=== PATIENT | female | born 1960 | race Caucasian/White ===

== ENCOUNTER 2016-11-30 05:18 | Emergency (ER) | payer OTHER ==
[~2016-11-30] VITALS: Ht 157.5 cm; Wt 77.1 kg
[~2016-11-30 05:18] MED LIST: ALPR0.25 PO; FLUO10CA15 PO
[2016-11-30] MEDS ORDERED: SODIUM CHLORIDE 0.9% 1,000 ML IV ONE (06:39)
[2016-11-30 07:29] LABS: Basophils # (auto) 0 uL; Basophils % (auto) 0.3 % (0.0-2.0); Eosinophils # (auto) 0 uL; Hematocrit 44.5 % (36.0-46.0); Lymphocytes # (auto) 1.2 uL; Lymphocytes % (auto) 8.5 % (10.0-50.0); Mean Corpuscular Hemoglobin 31.9 pg (28.0-32.0); Mean Corpuscular Hgb Conc. 33.8 g/dL (32.0-36.0); Mean Corpuscular Volume 94.5 fL (80.0-100.0); Mean Platelet Volume 8.8 fL (6.9-10.8); Monocytes # (auto) 0.7 uL; Monocytes % (auto) 4.8 % (0.0-12.0); Neutrophils # (auto) 12.1 uL; Neutrophils % (auto) 86.4 % (37.0-80.0); Platelet Count (auto) 228 10^3/uL (140-450); Red Cell Distribution Width 13.5 % (11.8-14.3); White Blood Cell 14.1 10^3/uL (4.4-10.8)
[2016-11-30 07:48] LABS: Albumin 3.5 g/dL (3.4-5.0); BUN/Creatinine Ratio 18.9; Calcium 9.7 mg/dL (8.5-10.1); Magnesium 2.1 mg/dL (1.6-2.6); Potassium 3.8 mmol/L (3.5-5.1)
[2016-11-30 07:50] LABS: Bilirubin, Total 0.5 mg/dL (0.2-1.0); Total Protein 7.1 g/dL (6.4-8.2)
[2016-11-30] MEDS ORDERED: VANCOMYCIN 1GM/250ML D5W 250 ML IV ONE (09:00)
[2016-11-30 09:28] LABS: Urine Bilirubin Negative (Negative); Urine Blood 1+ /uL (Negative); Urine Color Yellow (Yellow); Urine Glucose TRACE mg/dL (Normal); Urine Ketone TRACE (Negative); Urine Mucus FEW (None Seen); Urine Nitrite Negative (Negative); Urine RBC 11 /hpf (0 - 4); Urine Squamous Epithelial Cell FEW /hpf (<5)
[2016-11-30] MEDS ORDERED: IBUPROFEN 600 MG TAB PO ONE (09:45)
[2016-11-30 11:45] VITALS: BP 134/70
== END 2016-11-30 11:57 | disposition home or self-care (01) ==
LOC: EDBD 05:18 → ER 05:18
DX: K52.9 Noninfective gastroenteritis and colitis, unspecified (principal); K57.32 Diverticulitis of large intestine without perforation or abscess without bleeding; E78.5 Hyperlipidemia, unspecified; I25.2 Old myocardial infarction; Z88.8 Allergy status to other drugs, medicaments and biological substances; Z90.49 Acquired absence of other specified parts of digestive tract; Z88.1 Allergy status to other antibiotic agents
CPT/HCPCS: 36415; 74176; 80053; 81001; 83690; 83735; 84443; 85025; 94761; 96361; 96365; 99285; J3370

== ENCOUNTER 2024-08-08 09:14 | Inpatient (IN) | payer OTHER ==
[2024-08-08] VITALS (7 sets, daily range): BP systolic 136–215; BP diastolic 68–111; PULSE 110–158; RESP 37–44; O2SAT 90–99
[~2024-08-08] VITALS: Ht 157.5 cm; Wt 69.0 kg
--- NOTE | 2024-08-08 09:28 | ECG ---
[facility] Test Date: 2024-08-08 Test Time: 09:27:30 Pat Name: KIMMIE NOLAND Department: ED Room: Gender: F Systems Analyst Engineer: AGNES : 1960 Requested By: YU SARMIENTO Order Number: [id number] Reading MD: Abhay Cabello Measurements Intervals [place] Rate: 154 P: 58 MO: 150 QRS: 18 QRSD: 81 T: -85 QT: 274 QTc: 439 Interpretive Statements Sinus tachycardia Atrial premature complex Probable left atrial enlargement Low voltage, precordial leads Probable anteroseptal infarct, old Repolarization abnormality, prob rate related Electronically Signed On 08-08-2024 17:33:05 PDT by Abhay Cabello Please click the below link to view image of tracing.
[2024-08-08] MEDS ORDERED: ALBUTEROL SULF 2.5 MG/0.5ML(0.5%) NEB SOLN NEB ONE ×2 (09:30)
[2024-08-08] MEDS: LACTATED RINGER'S 1,500 ML IV ONE (09:30)
--- NOTE | 2024-08-08 09:32 | ED.PDOC ---
SOB-HPI HPI Comments 63 y/o F, BIBA, with PMHx of AFib, DM, VT, and anxiety presents to the ED for CC of shortness of breath. EMS reports, patient is coming from home where she c/o shortness of breath worsening in the last x2days. Upon arrival to scene, patient was found to be hypoxic stating at 70% on 4L via NC; endorses continuos oxygen usage at this flow with normal O2 stats. Patient reports, having a right sided lung transplant which she is concerned may be causing symptoms. Patient denies sick contacts, cough, chest pain, or fever. No other symptoms or modifying factors at this time. 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: No Pertinent TOOL GRINDER OPERATOR EXTERNAL History Family History Family History: Unobtainable Social History Smoker: Non-Smoker Alcohol: Denies ETOH Use Drugs: Denies Drug Use Lives In: Home Constitutional: denies: chills, diaphoresis, fatigue, fever, malaise, sweats, weakness, others EENTM: denies: blurred vision, double vision, ear bleeding, ear discharge, ear drainage, ear pain, ear ringing, eye pain, eye redness, hearing loss, mouth pain, mouth swelling, nasal discharge, nose bleeding, nose congestion, nose pain, photophobia, tearing, throat pain, throat swelling, voice changes, others Respiratory: reports: shortness of breath; denies: cough, hemoptysis, orthopnea, SOB at rest, SOB with excertion, stridor, wheezing, others Cardiovascular: denies: chest pain, dizzy spells, diaphoresis, Dyspnea on exertion, edema, irregular heart beat, left arm pain, lightheadedness, palpitations, PND, syncope, others Gastrointestinal: denies: abdomen distended, abdominal pain, blood streaked bowels, constipated, diarrhea, dysphagia, difficulty swallowing, hematemesis, melena, nausea, poor appetite, poor fluid intake, rectal bleeding, rectal pain, vomiting, others Genitourinary: denies: abnormal vagina bleeding, burning, dyspareunia, dysuria, flank pain, frequency, hematuria, incontinence, pain, , vagina dis charge, urgency, others Neurological: denies: dizziness, fainting, headache, left sided numbness, left sided weakness, numbness, paresthesia, pre-existing deficit, right sided numbness, right sided weakness, seizure, speech problems, tingling, tremors, weakness, others Musculoskeletal: denies: back pain, gout, joint pain, joint swelling, muscle pain, muscle stiffness, neck pain, others Integumetry: denies: bruises, change in color, change in hair/nails, dryness, laceration, lesions, lumps, rash, wounds, others Allergic/Immunocompromised: denies: Difficulty Healing, Frequent Infections, Hives, Itching, others Hematologic/Lymphatic: denies: anemia, blood clots, easy bleeding, easy bruising, swollen glands, others Endocrine: denies: excessive hunger, excessive sweating, excessive thirst, excessive urination, flushing, intolerance to cold, intolerance to heat, unexplained weight gain, unexplained weight loss, others Psychiatric: denies: anxiety, bipolar disorder, depression, hopeless, panic disorder, schizophrenia, sleepless, suicidal, others All Other Systems: Reviewed and Negative Physical Exam General Appearance: No Apparent Distress, Normal HEENT: Normal ENT Inspection, Pharynx Normal Neck: Full Range of Motion, Non-Tender, Normal, Normal Inspection Respiratory: Chest Non-Tender, Crackles, No Accessory Muscle Use, No Respiratory Distress, Wheezing (BILATERAL) Cardiovascular: No Edema, No Murmur, No Gallop, Normal Peripheral Pulses, Regular Rate/Rhythm Breast Exam: Deferred Gastrointestinal: No Organomegaly, Non Tender, No Pulsatile Mass, Normal Bowel Sounds, Soft Genitalia: Deferred Pelvic: Deferred Rectal: Deferred Extremities: No calf tenderness, Normal capillary refill, Normal inspection, Normal range of motion, Non-tender, No pedal edema Musculoskeletal : Apperance: Normal Neurologic: Alert, financial aid II-XII nml as Tested, No Motor Deficits, Normal Affect, Normal Mood, No Sensory Deficits Cerebellar Function: Normal Reflexes: Normal Skin: Dry, Normal Color, Warm Lymphatic: No Adenopathy Was a procedure done? Was a procedure done?: No Differential Dx Differential Diagnosis: Anxiety, Asthma, Bronchitis, CHF, COPD, Myocardial infarction, Panic Attack, Pneumonia, Pneumothorax, Pulmonary Embolism, Respiratory Distress, Sinusitis, Pharyngitis, URI X-Ray, Labs, Meds, VS Vital Signs Date Time Temp Pulse Resp B/P (MAP) Pulse Ox O2 Delivery O2 Flow Rate FiO2 08/08/24 11:18 121 139/57 Facial BiPAP Mask 60 08/08/24 10:31 120 08/08/24 10:12 148 44 215/111 90 65 08/08/24 10:07 60 08/08/24 10:03 131 30 155/73 (100) 95 08/08/24 09:59 134 08/08/24 09:48 215/111 08/08/24 09:38 148 215/111 Facial BiPAP Mask 50 08/08/24 09:36 97.9 158 37 215/111 (145) 90 97.9 08/08/24 09:27 154 08/08/24 09:24 98.2 156 40 200/130 (153) 90 98.2 Lab Test 08/08/24 11:00 08/08/24 10:54 08/08/24 09:51 08/08/24 09:48 Range/Units Urine Color Pending Urine Clarity Pending Urine pH Pending Urine Specific [place] Pending Urine Protein Pending Urine Ketones Pending Urine Blood Pending Urine Nitrite Pending Urine Bilirubin Pending Urine Urobilinogen Pending Urine Leukocyte Esterase Pending Urine RBC Pending Urine Microscopic WBC Pending Urine Squamous Epithelial Cells Pending Urine Bacteria Pending Urine Glucose Pending Troponin I High Sensitivity 75 *H 32 </=34 ng/L Blood Gas Specimen Type Arterial Blood Gas Sample Site Left radial Blood Gas Patient Temperature 37.0 Arterial Blood Date Drawn [id number] Arterial Blood pH 7.418 7.350-7.450 Arterial Blood Partial Pressure CO2 42.6 32.0-45.0 mmHg Arterial Blood Partial Pressure O2 67.8 L 83.0-108.0 mmHg Arterial Blood HCO3 26.9 21.0-28.0 mmol/L Arterial Blood Oxygen Saturation 90.5 L 94.0-98.0 % Arterial Blood Base Excess 2.1 -2.0-3.0 mmol/L Arterial Blood Oxyhemoglobin 89.5 L 94.0-98.0 % Arterial Blood Carboxyhemoglobin 0.6 0.5-1.5 % Arterial Blood Methemoglobin 0.5 0.0-1.5 % Ramos Test Yes Blood Gas Total Hemoglobin 10.00 L 12.0-16.0 g/dL Blood Gas Modality Mask - bipap FiO2 % 50.0 Blood Gas EPAP 5 Blood Gas IPAP 12 White Blood Count 10.8 4.4-10.8 10^3/uL Red Blood Count 3.00 L 4.0-5.20 10^6/uL Hemoglobin 9.4 L 12.2-16.2 g/dL Hematocrit 28.8 L 36.0-46.0 % Mean Corpuscular Volume 96.0 80.0-100.0 fL Mean Corpuscular Hemoglobin 31.3 28.0-32.0 pg Mean Corpuscular Hemoglobin Concent 32.6 32.0-36.0 g/dL Red Cell Distribution Width 17.1 H 11.8-14.3 % Platelet Count 272 140-450 10^3/uL Mean Platelet Volume 8.8 6.9-10.8 fL Neutrophils (%) (Auto) 60.1 37.0-80.0 % Lymphocytes (%) (Auto) 26.9 10.0-50.0 % Monocytes (%) (Auto) 10.8 0.0-12.0 % Eosinophils (%) (Auto) 1.4 0.0-7.0 % Basophils (%) (Auto) 0.8 0.0-2.0 % Neutrophils # (Auto) 6.5 1.6-8.6 10 ^3/uL Lymphocytes # (Auto) 2.9 0.4-5.4 10 ^3/uL Monocytes # (Auto) 1.2 0-1.3 10 ^3/uL Eosinophils # (Auto) 0.2 0-0.8 10 ^3/uL Basophils # (Auto) 0.1 0-0.2 10 ^3/uL Nucleated Red Blood Cells 0.0 % Prothrombin Time 11.7 9.3-11.8 sec Prothrombin Time INR 1.12 0.9-1.15 Activated Partial Thromboplast Time 26.3 24.5-34.5 SEC Sodium Level 143 136-145 mmol/L Potassium Level 3.7 3.5-5.1 mmol/L Chloride Level 103 98-107 mmol/L Carbon Dioxide Level 28 20-31 mmol/L Anion Gap 12 5-15 Blood Urea Nitrogen 18 9-23 mg/dL Creatinine 1.45 H 0.550-1.02 mg/dL Glomerular Filtration Rate Calc 40 >90 mL/min BUN/Creatinine Ratio 12.4 10.0-20.0 Serum Glucose 177 H 74-106 mg/dL Lactic Acid Level 3.9 *H 0.4-2.0 mmol/L Calcium Level 10.2 8.7-10.4 mg/dL B-Type Natriuretic Peptide 3977.34 0-100 pg/mL Current Medications Medications (Trade) Dose Ordered Sig/Tatyana Route Start Time Stop Time Status Last Admin Albuterol (Ventolin Medneb) 20 mg ONCE ONCE NEB 08/08/24 09:30 08/08/24 09:31 DC 08/08/24 10:23 Ipratropium [place] (Atrovent Medneb) 0.5 mg ONCE ONCE NEB 08/08/24 09:30 08/08/24 09:31 DC 08/08/24 10:23 Furosemide (Lasix Injection) 40 mg ONCE ONCE IV 08/08/24 09:30 08/08/24 09:31 DC 08/08/24 09:48 Vancomycin HCl 200 ml @ 200 mls/hr ONCE ONCE IV 08/08/24 09:30 08/08/24 10:29 DC 08/08/24 10:05 Cefepime HCl 50 ml @ 12.5 mls/hr Q8H IV 08/08/24 09:36 08/08/24 10:30 Lorazepam (Ativan Inj) 0.5 mg ONCE ONCE IV 08/08/24 11:00 08/08/24 11:01 DC 08/08/24 10:59 [place] [address] Ph: [phone] DIAGNOSTIC IMAGING Diagnostic Imaging Report : [id number] Signed PATIENT: KIMMIE NOLAND ACCT: [id number] UNIT: [id number] : 1960 LOC: ER ROOM / BED: / AGE / SEX: 63 / F ADM STATUS: REG ER SERVICE 2 ORDERING PHYSICIAN: YU SARMIENTO MD PROCEDURE(s): CXRP - CHEST PORTABLE REASON: sob ORDER NUMBER(s): [id number], ACCESSION NUMBER(s): [id number] CHEST XRAY: 1 view(s) was obtained HISTORY: 63 years old, Female; sob. COMPARISON: None FINDINGS: Extensive bilateral lung opacification with areas of confluence and ground glass. Cardiomediastinal solid is enlarged. Calcification of the yamilka arch. Overlying wires. IMPRESSION: 1. Extensive bilateral along the opacification which can be seen with diffuse alveolar damage. Superimposed pulmonary edema and pneumonia may be the underlying cause. 2. Cardiomegaly ATED BY: WALLY WALKER MD DICTATED DATE/TIME: 08/08/241041 SIGNED BY: WALLY WALKER MD SIGNED DATE/TIME: 08/08/241041 CC: Time of 1ST Reevaluation: 09:50 Reevaluation 1ST: Unchanged Time of 2ND Reevaluation: 10:58 Reevaluation 2ND: Improved Time of 3RD Reevaluation: 11:22 Reevaluation 3RD: Improved (pt had large amount of urinary incontinence before acharya insertion) Consultation: Other ([facility] lung transplant- pending response from them, [facility]. Dr Keys gave authorization to admit here #[id number]) Patient Education/Counseling: Diagnosis, Treatment, Prognosis, Need For Follow Up Family Education/Counseling: Diagnosis, Treatment, Prognosis, Need For Follow Up, No Family Present Comments 30cc/kg IBW IVF was not given._0__cc was given instead, due to the following condition(s): __comfort or palliative care directive x_pre-existing fluid overload __refusal of fluid __refusal of IV access __IV antibiotics received more than 24 hours prior to presentation __pt included in a clinical trial __Pt is fluid unresponsive due tot low C.O> or low EF __LVAD patient pt is much improved. she is calm and comfortably resting on Bipap. she is speaking in full sentences. cxr suggest ARDS vs pulm edema. i started to diurese with lasix. a fole will be inserted to watch strict I/Os. sepsis bundel also started for pneumonia. pt reports that she was recently admitted to [place] for pneumonia, but does not know if she was on antibiotics prior to coming to our ER. pt understands that she may still need to be intubated if worsens, but feels improved and wished to avoid it for now. pt will be admitted for pneumonia, with severe sepsis, with respiratory failure, on BiPAP. she also is in acute systolic heart failure and mild renal failure. in addition, pt has hypertensive emergency which may have contributed to the pulmonary edema. this will be treated with labetolol and nitro, lasix pt continues to improve. [place] [facility] was called and granted permission to admit pt here Additional Information Previous visits reviewed: 11/30/16 DX: ACUTE ABD PAIN, 01/03/16 DX: SVT, POSS STEMI The following tests were ordered, and results were reviewed by me: Additional Information was gathered from interviewing the following independent historians: None I reviewed and agreed with the following test results read by other providers: None I discussed treatment and results with medical personnel and: patient Comprehensive systems review obtained and negative except for what is stated in the HPI. Sepsis Sepsis Reasesment Focused Exam Orders: Laboratory Tests 08/08/24 09:48: Lactic Acid Level 3.9 Sepsis Date: Aug 08, 2024 Time recognized/suspected: 09:25 Recent Procedure: No On Antibiotic Therapy: No Respiratory Rate >20: Yes Heart Rate >90: Yes Temp<36 C (96.8 F) or >38.3 C: No SBP <90 or MAP <65 mmHG: No New Acute Mental Status Change: No Is the patient on CPAP, BIPAP,: Yes IV fluid given: No Departure 1 Departure Time of Disposition: 11:02 Impression: Primary Impression: Severe sepsis Additional Impressions: Acute respiratory failure Qualified Codes: J96.01 - Acute respiratory failure with hypoxia Renal insufficiency CHF (congestive heart failure) Qualified Codes: I50.21 - Acute systolic (congestive) heart failure Hypertensive emergency Disposition: ADMITTED INPATIENT Admit to: ICU Condition: Critical Discharged With: Self, Spouse Critical Care Note Critical Care Time?: Yes (55 min-critical care time only) Critical care comment: Due to concerns for patients condition deteriorating, the care required my highest level of attention and readiness to intervene. I assessed the patient, reviewed the medical records, ordered the appropriate tests and treatments, then reassessed for results and responsiveness. I communicated with medical personnel and consultants and formulated a plan of care. Total critical care time excludes any procedures Stability Stability form required: No Heart Score Heart Score: Heart Score Response (Comments) Value History N/A 0 EKG N/A 0 Age N/A 0 Risk Factors N/A 0 Troponin N/A 0 Total 0 I personally scribed for YU SARMIENTO MD ([email or web address]) on 08/08/24 at 09:31. Electronically submitted by Khadra Soto (Spor). I personally scribed for YU SARMIENTO MD ([email or web address]) on 08/08/24 at 11:24. Electronically submitted by Khadra Soto (Spor). I personally scribed for YU SARMIENTO MD ([email or web address]) on 08/08/24 at 11:25. Electronically submitted by Khadra Soto (Spor). YU SARMIENTO MD Aug 08, 2024 09:31
[2024-08-08] MEDS: FUROSEMIDE 40 MG/4 ML VIAL IV ONE ×2 (09:48→11:49)
[2024-08-08 09:56] LABS: Base Excess 2.1 mmol/L (-2.0-3.0)
[2024-08-08] MEDS: VANCOMYCIN 1GM/200ML PM 200 ML IV ONE (10:05)
[2024-08-08 10:08] LABS: Basophils # (auto) 0.1 10 ^3/uL (0-0.2); Basophils % (auto) 0.8 % (0.0-2.0); Eosinophils # (auto) 0.2 10 ^3/uL (0-0.8); Eosinophils % (auto) 1.4 % (0.0-7.0); Hematocrit 28.8 % (36.0-46.0); Hemoglobin 9.4 g/dL (12.2-16.2); Lymphocytes # (auto) 2.9 10 ^3/uL (0.4-5.4); Lymphocytes % (auto) 26.9 % (10.0-50.0); Mean Corpuscular Hemoglobin 31.3 pg (28.0-32.0); Mean Corpuscular Hgb Conc. 32.6 g/dL (32.0-36.0); Monocytes # (auto) 1.2 10 ^3/uL (0-1.3); Monocytes % (auto) 10.8 % (0.0-12.0); Neutrophils # (auto) 6.5 10 ^3/uL (1.6-8.6); Neutrophils % (auto) 60.1 % (37.0-80.0); Platelet Count (auto) 272 10^3/uL (140-450); Red Cell Distribution Width 17.1 % (11.8-14.3); White Blood Cell 10.8 10^3/uL (4.4-10.8)
[2024-08-08 10:10] LABS: Chloride 103 mmol/L (98-107); Potassium 3.7 mmol/L (3.5-5.1); Sodium 143 mmol/L (136-145)
[2024-08-08 10:11] LABS: Anion Gap 12 (5-15); Calcium 10.2 mg/dL (8.7-10.4); Carbon Dioxide 28 mmol/L (20-31)
[2024-08-08 10:16] LABS: BUN/Creatinine Ratio 12.4 (10.0-20.0); Blood Urea Nitrogen 18 mg/dL (9-23)
[2024-08-08 10:20] LABS: Glucose 177 mg/dL (74-106)
[2024-08-08 10:23] LABS: Lactic Acid w/Reflex 3.9 mmol/L (0.4-2.0)
[2024-08-08] MEDS: IPRATROPIUM BROM 0.5 MG/2.5ML INH SOL NEB ONE (10:23)
[2024-08-08] MEDS: ALBUTEROL SULF 2.5 MG/0.5ML(0.5%) NEB SOLN NEB ONE (10:23)
[2024-08-08] MEDS: CEFEPIME 1GM/ 50ML 50 ML IV SCH (10:30)
--- NOTE | 2024-08-08 10:32 | ECG ---
[facility] Test Date: 2024-08-08 Test Time: 10:31:15 Pat Name: KIMMIE NOLAND Department: ED Room: Gender: F Mica Spreader: AGNES : 1960 Requested By: YU SARMIENTO Order Number: [id number] Reading MD: Abhay Cabello Measurements Intervals [place] [facility] Rate: 120 P: 42 FL: 155 QRS: 0 QRSD: 65 T: 0 QT: 336 QTc: 475 Interpretive Statements Sinus tachycardia Atrial premature complex Probable left atrial enlargement LVH with secondary repolarization abnormality Electronically Signed On 08-08-2024 17:33:33 PDT by Abhay Cabello Please click the below link to view image of tracing.
--- NOTE | 2024-08-08 10:45 | DVH ---
CHEST XRAY: 1 view(s) was obtained HISTORY: 63 years old, Female; sob. COMPARISON: None FINDINGS: Extensive bilateral lung opacification with areas of confluence and ground glass. Cardiomediastinal s olid is enlarged. Calcification of the yamilka arch. Overlying wires. IMPRESSION: 1. Extensive bilateral along the opacification which can be seen with diffuse alveolar damage. Super imposed pulmonary edema and pneumonia may be the underlying cause. 2. Cardiomegaly
[2024-08-08 10:46] LABS: INR 1.12 (0.9-1.15); Partial Thromboplastin Time 26.3 SEC (24.5-34.5); Prothrombin Time 11.7 sec (9.3-11.8)
[2024-08-08] MEDS: LORazepam 2MG/ML-1ML VIAL IV ONE (10:59)
[2024-08-08] MEDS ORDERED: NITROGLYCERIN 2% OINT 1GM PKG TD ONE (11:15)
[2024-08-08] MEDS ORDERED: LABETALOL HCL 20 MG/4 ML VL IV ONE (11:15)
[2024-08-08 11:29] LABS: Urine Bacteria None Seen /hpf (None Seen)
[2024-08-08 11:37] LABS: Urine Blood Negative /uL (Negative); Urine Clarity Clear (Clear); Urine Hyaline Cast FEW /lpf (0 - 2); Urine Protein, UAD Negative (Negative); Urine Specific Gravity 1.007 (1.001-1.035); Urine Squamous Epithelial Cell None Seen /hpf (<5); Urine Urobilinogen Normal (Negative); Urine WBC 1 /HPF (0-5); Urine pH 5.5 (5.0-9.0)
[2024-08-08 11:40] LABS: Urine Color Light-Yellow (Yellow)
[2024-08-08 17:03] LABS: Rapid Influenza A Negative (Negative); Rapid Influenza B Negative (Negative)
[2024-08-08 17:04] LABS: COVID19 ANTIGEN SOFIA FIA NEGATIVE (NEGATIVE)
[2024-08-08] MEDS ORDERED: DEXTROSE (50%) 50ML SYRG IV PRN (21:15)
[2024-08-08] MEDS ORDERED: MORPHINE SULFATE INJ 2 MG/ml SYRG IV PRN (21:15)
[2024-08-08] MEDS ORDERED: IPRATROPIUM BROM 0.5 MG/2.5ML INH SOL NEB PRN (21:15)
[2024-08-08] MEDS ORDERED: ONDANSETRON HCL 4 MG/2 ML VIAL IV PRN (21:15)
[2024-08-08] MEDS ORDERED: ACETAMINOPHEN 325 MG TAB PO PRN (21:15)
[2024-08-08] MEDS ORDERED: NITROGLYCERIN 0.4 MG SL TAB SL PRN (21:15)
[2024-08-08] MEDS ORDERED: ALBUTEROL SULF 2.5 MG/0.5ML(0.5%) NEB SOLN NEB PRN ×2 (21:15→23:30)
[2024-08-08] MEDS: APIXABAN 5 MG TAB PO SCH (22:44)
[2024-08-08] MEDS: ATORVASTATIN 20 MG TAB PO SCH (22:44)
[2024-08-08] MEDS: ACCU-CHEK COMFORT CURVE STRIP VI SCH (22:59)
[2024-08-08] MEDS: InsuLIN REG 1unit/0.01ml Soln (100units/ml) SC SCH (23:03)
[2024-08-09] VITALS (63 sets, daily range): BP systolic 80–188; BP diastolic 39–98; PULSE 68–146; RESP 14–92; TEMP 97.3–100; O2SAT 85–100
[2024-08-09] MEDS: TEMAZEPAM 15 MG CAP PO ONE (01:44)
--- NOTE | 2024-08-09 05:01 | DVHHP2 ---
History of Present Illness Reason for Visit: Shortness for breath History of Present Illness 63-year-old female presents for evaluation of shortness for breath. Patient reports a two day history of worsening shortness for breath with associated chest tightness. Patient reports having a lung transplant on 2023. Patient also has a history of congestive heart failure. Denies fever or chills. No other acute complaints. Past Medical History [place], dyslipidemia, diabetes mellitus, congestive heart failure, atrial fibrillation Past Surgical History Lung transplant Family History Noncontributory Smoke: No ALCOHOL: none Drugs: None Lives: with Family Review of Systems Review of Systems Review of systems are currently negative otherwise addressed in HPI. Allergies: Coded Allergies: Ciprofloxacin (Verified Allergy, Unknown, 01/03/16) Metronidazole (Verified Allergy, Unknown, 01/03/16) Medications Current Medications Medications Dose Ordered Sig/Tatyana Route Start Time Stop Time Status Last Admin Dose Admin Cefepime HCl 50 ml @ 12.5 mls/hr Q8H IV 08/08/24 09:36 08/08/24 22:44 12.5 MLS/HR Ceftriaxone Sodium 50 ml @ 100 mls/hr DAILY@09 IV 08/09/24 09:00 Azithromycin 250 ml @ 125 mls/hr DAILY IV 08/09/24 10:00 Ipratropium [place] 0.5 mg Q6HPRN PRN NEB 08/08/24 21:15 Patient Own Medication 1 mg BID PO 08/08/24 22:00 UNV Furosemide 20 mg BIDD IV 08/09/24 06:00 Aspirin 162 mg DAILY PO 08/09/24 10:00 Atorvastatin Calcium 10 mg HS PO 08/08/24 22:00 08/08/24 22:44 10 MG Apixaban 5 mg BID PO 08/08/24 22:00 08/08/24 22:44 5 MG Patient Own Medication 100 mg BID PO 08/08/24 22:00 UNV Prednisone 10 mg DAILY PO 08/09/24 10:00 Diagnostic Test (Pha) 1 strip ACHS 08/08/24 22:00 08/08/24 22:59 1 STRIP Insulin Human Regular ACHS SC 08/08/24 22:00 08/08/24 23:03 3 UNITS Dextrose 50 ml UD PRN IV 08/08/24 21:15 Ondansetron HCl 4 mg Q4HP PRN IV 08/08/24 21:15 Acetaminophen 650 mg Q6HP PRN PO 08/08/24 21:15 Nitroglycerin 0.4 mg Q5MINP PRN SL 08/08/24 21:15 Morphine Sulfate 2 mg Q30M PRN IV 08/08/24 21:15 Albuterol 2.5 mg Q6HPRN PRN NEB 08/08/24 23:30 Exam Vital Signs Vital Signs Date Time Temp Pulse Resp B/P (MAP) Pulse Ox O2 Delivery O2 Flow Rate FiO2 08/09/24 04:16 135 141/87 96 Facial BiPAP Mask 45 08/09/24 04:00 20 08/08/24 19:36 98.1 98.1 Exam Gen: 63-year-old female in mild distress Skin: Warm, dry, normal color and texture, no rash. HEENT: Normocephalic atraumatic, mucous membranes moist and pink. Neck: Cervical and supraclavicular nodes normal without enlargement, trachea is midline, thyroid gland is normal without masses. Pulmonary: Bilateral rhonchi Cardiac: Regular rate and rhythm. No murmur Abdomen: Soft, nontender, nondistended, bowel sounds present all 4 quadrants, no guarding, no rigidity, no organomegaly. Extremities: No cyanosis, clubbing, no edema Neuro: Cranial nerves II through XII grossly intact, normal affect and speech, no focal motor deficits. Labs/Xrays ORDERING PHYSICIAN: YU SARMIENTO MD PROCEDURE(s): CXRP - CHEST PORTABLE REASON: sob ORDER NUMBER(s): [id number], ACCESSION NUMBER(s): [id number] CHEST XRAY: 1 view(s) was obtained HISTORY: 63 years old, Female; sob. COMPARISON: None FINDINGS: Extensive bilateral lung opacification with areas of confluence and ground glass. Cardiomediastinal solid is enlarged. Calcification of the yamilka arch. Overlying wires. IMPRESSION: 1. Extensive bilateral along the opacification which can be seen with diffuse alveolar damage. Superimposed pulmonary edema and pneumonia may be the underlying cause. 2. Cardiomegaly Labs Test 08/08/24 22:58 08/08/24 16:28 08/08/24 12:59 08/08/24 11:00 Range/Units POC Glucose 179 H 70-106 mg/dl Influenza Type A Antigen Negative Negative Influenza Type B Antigen Negative Negative SARS-CoV-2 Antigen (Rapid) Negative NEGATIVE Lactic Acid Level 3.0 *H 0.4-2.0 mmol/L Troponin I High Sensitivity 126 *H </=34 ng/L Urine Color Light-yellow Yellow Urine Clarity Clear Clear Urine pH 5.5 5.0-9.0 Urine Specific [place] 1.007 1.001-1.035 Urine Protein Negative Negative Urine Ketones Negative Negative Urine Blood Negative Negative /uL Urine Nitrite Negative Negative Urine Bilirubin Negative Negative Urine Urobilinogen Normal Negative mg/dL Urine Leukocyte Esterase Negative Negative /uL Urine RBC <1 0 - 4 /hpf Urine Microscopic WBC 1 0-5 /HPF Urine Squamous Epithelial Cells None seen <5 /hpf Urine Bacteria None seen None Seen /hpf Urine Hyaline Casts Few 0 - 2 /lpf Urine Glucose Normal Normal mg/dL Test 08/08/24 09:51 08/08/24 09:48 Range/Units Blood Gas Specimen Type Arterial Blood Gas Sample Site Left radial Blood Gas Patient Temperature 37.0 Arterial Blood Date Drawn [id number] Arterial Blood pH 7.418 7.350-7.450 Arterial Blood Partial Pressure CO2 42.6 32.0-45.0 mmHg Arterial Blood Partial Pressure O2 67.8 L 83.0-108.0 mmHg Arterial Blood HCO3 26.9 21.0-28.0 mmol/L Arterial Blood Oxygen Saturation 90.5 L 94.0-98.0 % Arterial Blood Base Excess 2.1 -2.0-3.0 mmol/L Arterial Blood Oxyhemoglobin 89.5 L 94.0-98.0 % Arterial Blood Carboxyhemoglobin 0.6 0.5-1.5 % Arterial Blood Methemoglobin 0.5 0.0-1.5 % Ramos Test Yes Blood Gas Total Hemoglobin 10.00 L 12.0-16.0 g/dL Blood Gas Modality Mask - bipap FiO2 % 50.0 Blood Gas EPAP 5 Blood Gas IPAP 12 White Blood Count 10.8 4.4-10.8 10^3/uL Red Blood Count 3.00 L 4.0-5.20 10^6/uL Hemoglobin 9.4 L 12.2-16.2 g/dL Hematocrit 28.8 L 36.0-46.0 % Mean Corpuscular Volume 96.0 80.0-100.0 fL Mean Corpuscular Hemoglobin 31.3 28.0-32.0 pg Mean Corpuscular Hemoglobin Concent 32.6 32.0-36.0 g/dL Red Cell Distribution Width 17.1 H 11.8-14.3 % Platelet Count 272 140-450 10^3/uL Mean Platelet Volume 8.8 6.9-10.8 fL Neutrophils (%) (Auto) 60.1 37.0-80.0 % Lymphocytes (%) (Auto) 26.9 10.0-50.0 % Monocytes (%) (Auto) 10.8 0.0-12.0 % Eosinophils (%) (Auto) 1.4 0.0-7.0 % Basophils (%) (Auto) 0.8 0.0-2.0 % Neutrophils # (Auto) 6.5 1.6-8.6 10 ^3/uL Lymphocytes # (Auto) 2.9 0.4-5.4 10 ^3/uL Monocytes # (Auto) 1.2 0-1.3 10 ^3/uL Eosinophils # (Auto) 0.2 0-0.8 10 ^3/uL Basophils # (Auto) 0.1 0-0.2 10 ^3/uL Nucleated Red Blood Cells 0.0 % Prothrombin Time 11.7 9.3-11.8 sec Prothrombin Time INR 1.12 0.9-1.15 Activated Partial Thromboplast Time 26.3 24.5-34.5 SEC Sodium Level 143 136-145 mmol/L Potassium Level 3.7 3.5-5.1 mmol/L Chloride Level 103 98-107 mmol/L Carbon Dioxide Level 28 20-31 mmol/L Anion Gap 12 5-15 Blood Urea Nitrogen 18 9-23 mg/dL Creatinine 1.45 H 0.550-1.02 mg/dL Glomerular Filtration Rate Calc 40 >90 mL/min BUN/Creatinine Ratio 12.4 10.0-20.0 Serum Glucose 177 H 74-106 mg/dL Calcium Level 10.2 8.7-10.4 mg/dL B-Type Natriuretic Peptide 3977.34 0-100 pg/mL Assessment/Plan Assessment/Plan Assessment Acute hypoxic respiratory failure Acute on chronic congestive heart failure Possible community-acquired pneumonia Early sepsis Hypertension Status post lung transplant Elevated troponin Chronic kidney disease Plan Admit the patient to [facility] to the hospitalist Continue BiPAP Rocephin/azithromycin Med nebs D-dimer pending Resume home medications Cardiology consultation Continue treatment per orders. Plan discussed with: Patient My Orders Orders - COBURNWALDO TERRY AGACNP Procedure Category Date Status Time Ceftriaxone 1gm/50ml PHA 08/09/24 In Process D5w (Rocephin) 09:00 Azithromycin 500mg/ PHA 08/09/24 In Process 250ml (Zithromax 50 10:00 Ipratropium Medneb PHA 08/08/24 In Process (Atrovent Medneb) 21:15 (Nf) Everolimus PHA 08/08/24 Pending 22:00 Furosemide Injection PHA 08/09/24 In Process (Lasix Injection) 06:00 Aspirin Tablet PHA 08/09/24 In Process 10:00 Atorvastatin (Lipitor) PHA 08/08/24 In Process 22:00 * Cardiology Consult CONS 08/08/24 Transmitted 21:03 Apixaban (Eliquis) PHA 08/08/24 In Process 22:00 (Nf) Cyclosporine PHA 08/08/24 Pending 22:00 Prednisone Tablet PHA 08/09/24 In Process 10:00 Basic Metabolic Panel LAB 08/09/24 Logged 04:00 Glucose Blood PHA 08/08/24 In Process (Accu-Chek Comfort 22:00 Insulin R (Human) PHA 08/08/24 In Process (Insulin R) 22:00 Dextrose 50% Syringe PHA 08/08/24 In Process 21:15 Admit ADMIT 08/08/24 Transmitted 21:03 Ondansetron Hcl PHA 08/08/24 In Process (Zofran) 21:15 Complete Blood Count LAB 08/09/24 Logged 04:00 Cardiac DIET 08/09/24 Transmitted Diet-2gna,Lofat,Lochol Breakfast Echo 2d Mode Cardiac US 08/08/24 Logged DOP 21:03 Condition: Serious TORSTEN 08/08/24 In Process 21:03 Acetaminophen Tablet PHA 08/08/24 In Process (Tylenol Tablet) 21:15 Bedrest With Bathroom TORSTEN 08/08/24 In Process Privileg 21:03 Nitroglycerin PHA 08/08/24 In Process Sublingual (Ntrostat 21:15 Morphine Sulfate PHA 08/08/24 In Process Injection 21:15 Stat Ekg For Chest TORSTEN 08/08/24 In Process Pain 21:03 Notify Md Of Changes [facility] 08/08/24 In Process From Base 21:03 Meeting Specialist For [facility] 08/08/24 In Process 24 Hours 21:03 Emergency Dysrhythmia [facility] 08/08/24 In Process Protocol 21:03 Rhythm Strips Once [facility] 08/08/24 In Process Every Shift 21:03 Oxygen By Nasal RT 08/08/24 Transmitted Cannula 21:03 Albuterol Medneb PHA 08/08/24 In Process (Ventolin Medneb) 23:30 D-Dimer LAB 08/09/24 Verified 04:56 Date of Service: Aug 08, 2024 Billing Provider: WALDO COBURN Common Visit Codes: [id number] CARE 30-74 MIN WALDO COBURN Aug 09, 2024 05:01
[2024-08-09 05:24] LABS: Basophils # (auto) 0.1 10 ^3/uL (0-0.2); Basophils % (auto) 1.4 % (0.0-2.0); Eosinophils # (auto) 0 10 ^3/uL (0-0.8); Eosinophils % (auto) 0.3 % (0.0-7.0); Hematocrit 29.6 % (36.0-46.0); Hemoglobin 9.8 g/dL (12.2-16.2); Lymphocytes # (auto) 0.7 10 ^3/uL (0.4-5.4); Lymphocytes % (auto) 8.6 % (10.0-50.0); Mean Corpuscular Hemoglobin 31.3 pg (28.0-32.0); Mean Corpuscular Hgb Conc. 33.1 g/dL (32.0-36.0); Mean Corpuscular Volume 94.8 fL (80.0-100.0); Monocytes # (auto) 0.6 10 ^3/uL (0-1.3); Monocytes % (auto) 7.7 % (0.0-12.0); Neutrophils # (auto) 6.9 10 ^3/uL (1.6-8.6); Nucleated Red Blood Cells % 0.2 %; Platelet Count (auto) 212 10^3/uL (140-450); Red Blood Cells 3.12 10^6/uL (4.0-5.20); Red Cell Distribution Width 16.8 % (11.8-14.3); White Blood Cell 8.4 10^3/uL (4.4-10.8)
[2024-08-09 05:31] LABS: Chloride 100 mmol/L (98-107); Potassium 3.7 mmol/L (3.5-5.1); Sodium 142 mmol/L (136-145)
[2024-08-09 05:32] LABS: Anion Gap 11 (5-15); Calcium 10.1 mg/dL (8.7-10.4); Carbon Dioxide 31 mmol/L (20-31)
[2024-08-09] MEDS: FUROSEMIDE 20 MG/2 ML VIAL IV SCH (05:35)
[2024-08-09 05:37] LABS: BUN/Creatinine Ratio 13.3 (10.0-20.0); Blood Urea Nitrogen 20 mg/dL (9-23); Glucose 75 mg/dL (74-106)
[2024-08-09] MEDS: LORazepam 2MG/ML-1ML VIAL IM ONE (07:19)
[2024-08-09] MEDS: LORazepam 2MG/ML-1ML VIAL IV ONE (07:25)
--- NOTE | 2024-08-09 08:19 | DVH ---
Bilateral lower extremity venous duplex Clinical History: positive DD Comparison: None Technique: Duplex Doppler evaluation of the deep venous systems of both lower extremities from the common femora l veins to the popliteal veins including color Doppler and spectral/pulsed waveform analysis was perf ormed. Findings: RIGHT SIDE: The common femoral vein demonstrates appropriate compressibility and waveform variability. There is incomplete compressibility of the greater saphenous vein. The femoral vein demonstrates intraluminal thrombus and noncompressibility. The deep femoral vein demonstrates appropriate compressibility and waveform variability. The popliteal vein demonstrates appropriate compressibility and waveform variability. There is normal compressibility at the tibioperoneal trunk. LEFT SIDE: The common femoral vein demonstrates appropriate compressibility and waveform variability. There is compressibility/patency of the great saphenous vein at the proximal thigh. The femoral vein demonstrates appropriate compressibility and waveform variability. The deep femoral vein demonstrates appropriate compressibility and waveform variability. The popliteal vein is not visualized. Posterior tibial vein is unremarkable. Impression: Limited examination. Nonvisualization of the left popliteal vein and suboptimal visualization of the left calf secondary t o patient inability to move leg. Incomplete compressibility and suggestion of intraluminal thrombus in the right greater saphenous vei n junction and right proximal and mid femoral vein suggestive of DVT.
[2024-08-09 08:37] LABS: Base Excess 5.4 mmol/L (-2.0-3.0)
[2024-08-09] MEDS: cefTRIAXone 1GM/50ML D5W 50 ML IV SCH (09:07)
[2024-08-09] MEDS ORDERED: HEPARIN DRIP/D5W 100UNITS/ML 250 ML IV SCH ×3 (09:15→21:30)
[2024-08-09] MEDS ORDERED: HEPARIN SODIUM (PORCINE) 5000 UNITS/ML 1ML VIAL IV ONE (09:15)
--- NOTE | 2024-08-09 09:41 | CONS ---
Pharmacy Clinical Information: AFTER ACOUSTICAL TILE DRILL PRESS OPERATOR DRAWS SAMPLE FOR BASELINE APTT AND CBC, PLEASE BOLUS 6200 UNITS HEPARIN IV, THEN INITIATE HEPARIN DRIP AT RATE 1400 UNITS/HR (DVT PROTOCOL BASED ON PATIENT WEIGHT OF 78.925KG) APTT DRAW SCHEDULED FOR 1600 PER RX PROTOCOL NICANOR CARDOSO PHARMACIST Aug 09, 2024 09:41
[2024-08-09] MEDS: AZITHROMYCIN 500MG/ 250ML 250 ML IV SCH (09:43)
[2024-08-09] MEDS ORDERED: predniSONE 5 MG TAB PO SCH (10:00)
[2024-08-09] MEDS ORDERED: ASPirin 81 mg TAB PO SCH (10:00)
[2024-08-09] MEDS ORDERED: CYCLOSPORINE 100 MG PO SCH (10:00)
[2024-08-09] MEDS ORDERED: ENOXAPARIN SOD 80 MG/0.8ML SYRINGE SC SCH (10:00)
[2024-08-09 10:19] LABS: Basophils # (auto) 0.1 10 ^3/uL (0-0.2); Eosinophils # (auto) 0 10 ^3/uL (0-0.8); Eosinophils % (auto) 0.5 % (0.0-7.0); Hematocrit 28.3 % (36.0-46.0); Hemoglobin 9.4 g/dL (12.2-16.2); Lymphocytes # (auto) 0.7 10 ^3/uL (0.4-5.4); Lymphocytes % (auto) 7.5 % (10.0-50.0); Mean Corpuscular Hemoglobin 31.4 pg (28.0-32.0); Mean Corpuscular Hgb Conc. 33.2 g/dL (32.0-36.0); Mean Corpuscular Volume 94.6 fL (80.0-100.0); Monocytes # (auto) 0.7 10 ^3/uL (0-1.3); Monocytes % (auto) 8.1 % (0.0-12.0); Neutrophils # (auto) 7.3 10 ^3/uL (1.6-8.6); Neutrophils % (auto) 82.9 % (37.0-80.0); Platelet Count (auto) 207 10^3/uL (140-450); Red Cell Distribution Width 16.8 % (11.8-14.3); White Blood Cell 8.8 10^3/uL (4.4-10.8)
[2024-08-09 10:29] LABS: INR 1.11 (0.9-1.15); Partial Thromboplastin Time 31.1 SEC (24.5-34.5); Prothrombin Time 11.6 sec (9.3-11.8)
[2024-08-09] MEDS: HEPARIN SODIUM (PORCINE) 5000 UNITS/ML 1ML VIAL IV ONE (10:31)
[2024-08-09] MEDS: ROCURONIUM 10MG/ML 10ML VIAL IV ONE ×2 (10:55→11:30)
[2024-08-09] MEDS: ETOMIDATE (2MG/ML) 20ML VIAL IV ONE ×2 (10:55→11:30)
[2024-08-09] MEDS: FUROSEMIDE 40 MG/4 ML VIAL IV ONE (10:57)
[2024-08-09] MEDS: FUROSEMIDE 40 MG/4 ML VIAL ONE (10:57)
[2024-08-09] MEDS: AMIODARONE BOLUS KIT 100 ML IV ONE (11:00)
[2024-08-09] MEDS: AMIODARONE 360mg/200mL PREMIX 200 ML IV ONE (11:00)
[2024-08-09] MEDS: AMIODARONE 360mg/200mL PREMIX 200 ML IV SCH (11:15)
[2024-08-09] MEDS: HEPARIN DRIP/D5W 100UNITS/ML 250 ML IV SCH ×2 (11:32→21:30)
--- NOTE | 2024-08-09 11:42 | DVHCONRES ---
JENNIFER LANDRY RESIDENT 08/09/24 1142: Date Seen: Aug 09, 2024 Resident Creating Document: JENNIFER LANDRY RESIDENT Reason for Consultation CHF History of Present Illness Patient is a 63-year-old female with past medical history of CHF, [place], dyslipidemia, type 2 diabetes, atrial fibrillation s/p ablation, s/p right lung transplant secondary to pulmonary fibrosis, who comes in due to shortness of breaths. According to patient, her shortness of breaths has been worsening over the last 2 weeks since being discharged from [facility] in [place] on home oxygen 2 L. detailed history could not be obtained from the patient due to patient being on BiPAP, according to the patient's , they were told patient has a leaky valve which is contributing to volume/pressure overload and causing respiratory symptoms. Per patient's , patient was also scheduled for another ablation in June for atrial flutter which she was unable to attend. [facility] with [facility]. At baseline patient is ambulatory independently plus uses a walker. On review of systems patient is complaining of fatigue, chills, shortness of breath, palpitations, nausea and dysuria. Serial troponins were 32, 75, 126. D-dimer was 0.95. Serum BNP 3977. Wells score was 6 and lower extremity Doppler showed DVT in right great saphenous and right proximal and mid femoral vein. Patient was started on IV heparin bolus plus infusion per pharmacy. Past Medical History CHF, [place], dyslipidemia, type 2 diabetes, atrial fibrillation s/p ablation, s/p right lung transplant secondary to pulmonary fibrosis Past Surgical History Right-sided lung transplant in September 2023 at [facility], s/p right carotid stent, s/p ablation for atrial fibrillation Family History: Family history: Diabetes mellitus G8 MOTHER, Onset:Unknown Social History Smoking: Quit Alcohol: Denies Drugs: Denies Allergies: Coded Allergies: Ciprofloxacin (Verified Allergy, Unknown, 01/03/16) Metronidazole (Verified Allergy, Unknown, 01/03/16) Home Meds Reported Medications Fluoxetine Hcl (Pmdd) (Fluoxetine) 10 Mg Cap, 1 CAP PO DAILY, #30 CAP 2 Refills 01/04/16 Alprazolam (Xanax) 0.25 Mg Tb, 1 TAB PO DAILY, #30 TAB 01/04/16 Current Medications Current Medications Medications (Trade) Dose Ordered Sig/Tatyana Route PRN Reason Start Time Stop Time Status Last Admin Ceftriaxone Sodium 50 ml @ 100 mls/hr DAILY@09 IV 08/09/24 09:00 08/09/24 09:07 Azithromycin 250 ml @ 125 mls/hr DAILY IV 08/09/24 10:00 08/09/24 09:43 Albuterol (Ventolin Medneb) 2.5 mg Q8HPRN PRN NEB SHORTNESS OF BREATH 08/08/24 21:15 08/08/24 23:22 DC Ipratropium [place] (Atrovent Medneb) 0.5 mg Q6HPRN PRN NEB SHORTNESS OF BREATH 08/08/24 21:15 Patient Own Medication 1 mg BID PO 08/09/24 10:00 Furosemide (Lasix Injection) 20 mg BIDD IV 08/09/24 06:00 08/09/24 05:35 Aspirin 162 mg DAILY PO 08/09/24 10:00 Atorvastatin Calcium (Lipitor) 10 mg HS PO 08/08/24 22:00 08/08/24 22:44 Apixaban (Eliquis) 5 mg BID PO 08/08/24 22:00 08/09/24 08:48 DC 08/08/24 22:44 Patient Own Medication 100 mg BID PO 08/09/24 10:00 UNV Prednisone 10 mg DAILY PO 08/09/24 10:00 Diagnostic Test (Pha) (Accu-Chek Comfort Curve T) 1 strip ACHS 08/08/24 22:00 08/09/24 06:53 Insulin Human Regular (InsuLIN R) ACHS SC 08/08/24 22:00 08/08/24 23:03 Dextrose 50 ml UD PRN IV Blood Sugar LESS THAN 60 08/08/24 21:15 Ondansetron HCl (Zofran) 4 mg Q4HP PRN IV NAUSEA / VOMITING 08/08/24 21:15 Acetaminophen (Tylenol Tablet) 650 mg Q6HP PRN PO PAIN SCALE 1-3 OR TEMP>100.4 08/08/24 21:15 Nitroglycerin (Ntrostat Sublingual) 0.4 mg Q5MINP PRN SL FOR CHEST PAIN 08/08/24 21:15 Morphine Sulfate 2 mg Q30M PRN IV FOR CHEST PAIN 08/08/24 21:15 Albuterol (Ventolin Medneb) 2.5 mg Q6HPRN PRN NEB SHORTNESS OF BREATH 08/08/24 23:30 Enoxaparin Sodium (Lovenox) 80 mg Q12HR SC 08/09/24 10:00 08/09/24 09:14 DC Heparin Sodium/ Dextrose 250 ml @ 14 mls/hr [id number] IV 08/09/24 09:15 08/09/24 09:58 DC Enoxaparin Sodium (Lovenox) 80 mg Q12HR SC 08/09/24 22:00 08/09/24 10:05 DC Heparin Sodium/ Dextrose 250 ml @ 14 mls/hr [id number] IV 08/09/24 10:15 Review of Systems Patient seen and examined at bedside. Review of systems was limited due to patient being on BiPAP. General: fatigue, chills Eyes: No Pain, No Vision change, No Conjunctivae inflammation, No Eyelid inflammation, No Other, No Redness ENT: No Ear pain, No Ear discharge, No Nose pain, No Nose discharge, No Nose congestion, No Mouth pain, No Mouth swelling, No Throat pain, No Throat swelling, No Other Cardiovascular: No Chest Pain, Palpitations, No Orthopnea, No Paroxysmal No Dyspnea, No Edema, No Lt Headedness, No Other Respiratory: No Cough, No Dry, Shortness of breath, No SOB with exertion, No Wheezing, No Hemoptysis, No Pleuritic Pain, No Sputum, No Other Gastrointestinal: Nausea, No Vomiting, No Abdominal Pain, No Diarrhea, No Constipation, No Melena, No Hematochezia, No Other Genitourinary: Dysuria, No Frequency, No Incontinence, No Hematuria, No Retention, No Other Musculoskeletal: No other, No neck pain, No shoulder pain, No arm pain, No back pain, No hand pain, No leg pain, No foot pain Skin: No Rash, No Lesions, No Jaundice, No Bruising, No Other Vital Signs Vital Signs Date Time Temp Pulse Resp B/P (MAP) Pulse Ox O2 Delivery O2 Flow Rate FiO2 08/09/24 10:57 148/78 08/09/24 10:42 146 95 Facial BiPAP Mask 55 08/09/24 05:00 33 08/08/24 19:36 98.1 98.1 Physical Exam General Appearance: Cooperative. Well developed. Well nourished. NAD Head Exam: Normal inspection Neck Exam: Normal inspection. Non-tender. Normal alignment Pulmonary/Respiratory: Chest non-tender. Clear bilateral breath sounds, crackles, no wheezing. Cardiovascular/Chest: Regular rate and rhythm. No murmurs. JVD. Peripheral Pulses: 2+ Radial (R). 2+ Radial (L). 2+ Pedal (R). 2+ Pedal (L) Abdominal Exam: Normal bowel sounds. Soft. normal abdomen, no visible veins, Nontender. No hepatospenomegaly. No masses Lower extremities: Trace lower extremity edema Neuro/Mental Status: A&O x4. Coherent. Thoughts/Psych: Normal thought pattern. Appropriate mood and affect. Good judgement and insight Skin Exam: Normal inspection. Normal color. Warm. Dry. Multiple small bruises noted on chest in bilateral forearms Labs/Diagnostic Data Labs Test 08/09/24 09:55 08/09/24 08:26 08/09/24 06:52 08/09/24 05:24 Range/Units White Blood Count 8.8 4.4-10.8 10^3/uL Red Blood Count 3.00 L 4.0-5.20 10^6/uL Hemoglobin 9.4 L 12.2-16.2 g/dL Hematocrit 28.3 L 36.0-46.0 % Mean Corpuscular Volume 94.6 80.0-100.0 fL Mean Corpuscular Hemoglobin 31.4 28.0-32.0 pg Mean Corpuscular Hemoglobin Concent 33.2 32.0-36.0 g/dL Red Cell Distribution Width 16.8 H 11.8-14.3 % Platelet Count 207 140-450 10^3/uL Mean Platelet Volume 8.8 6.9-10.8 fL Neutrophils (%) (Auto) 82.9 H 37.0-80.0 % Lymphocytes (%) (Auto) 7.5 L 10.0-50.0 % Monocytes (%) (Auto) 8.1 0.0-12.0 % Eosinophils (%) (Auto) 0.5 0.0-7.0 % Basophils (%) (Auto) 1.0 0.0-2.0 % Neutrophils # (Auto) 7.3 1.6-8.6 10 ^3/uL Lymphocytes # (Auto) 0.7 0.4-5.4 10 ^3/uL Monocytes # (Auto) 0.7 0-1.3 10 ^3/uL Eosinophils # (Auto) 0 0-0.8 10 ^3/uL Basophils # (Auto) 0.1 0-0.2 10 ^3/uL Nucleated Red Blood Cells 0.0 % Prothrombin Time 11.6 9.3-11.8 sec Prothrombin Time INR 1.11 0.9-1.15 Activated Partial Thromboplast Time 31.1 24.5-34.5 SEC Blood Gas Specimen Type Arterial Blood Gas Sample Site Right brachial Blood Gas Patient Temperature 37.0 Arterial Blood Date Drawn [id number] Arterial Blood pH 7.493 H 7.350-7.450 Arterial Blood Partial Pressure CO2 38.8 32.0-45.0 mmHg Arterial Blood Partial Pressure O2 63.7 L 83.0-108.0 mmHg Arterial Blood HCO3 29.1 H 21.0-28.0 mmol/L Arterial Blood Oxygen Saturation 90.2 L 94.0-98.0 % Arterial Blood Base Excess 5.4 H -2.0-3.0 mmol/L Arterial Blood Oxyhemoglobin 89.2 L 94.0-98.0 % Arterial Blood Carboxyhemoglobin 0.9 0.5-1.5 % Arterial Blood Methemoglobin 0.2 0.0-1.5 % Ramos Test N/a Blood Gas Total Hemoglobin 9.50 L 12.0-16.0 g/dL Blood Gas Modality Mask - bipap FiO2 % 45.0 Blood Gas EPAP 5 Blood Gas IPAP 12 POC Glucose 96 70-106 mg/dl D-Dimer, Quantitative 0.95 H 0.0-0.49 mg/L FEU Test 08/09/24 04:42 08/08/24 16:28 08/08/24 12:59 08/08/24 11:00 Range/Units Sodium Level 142 136-145 mmol/L Potassium Level 3.7 3.5-5.1 mmol/L Chloride Level 100 98-107 mmol/L Carbon Dioxide Level 31 20-31 mmol/L Anion Gap 11 5-15 Blood Urea Nitrogen 20 9-23 mg/dL Creatinine 1.50 H 0.550-1.02 mg/dL Glomerular Filtration Rate Calc 38 >90 mL/min BUN/Creatinine Ratio 13.3 10.0-20.0 Serum Glucose 75 74-106 mg/dL Calcium Level 10.1 8.7-10.4 mg/dL Influenza Type A Antigen Negative Negative Influenza Type B Antigen Negative Negative SARS-CoV-2 Antigen (Rapid) Negative NEGATIVE Lactic Acid Level 3.0 *H 0.4-2.0 mmol/L Troponin I High Sensitivity 126 *H </=34 ng/L Urine Color Light-yellow Yellow Urine Clarity Clear Clear Urine pH 5.5 5.0-9.0 Urine Specific [place] 1.007 1.001-1.035 Urine Protein Negative Negative Urine Ketones Negative Negative Urine Blood Negative Negative /uL Urine Nitrite Negative Negative Urine Bilirubin Negative Negative Urine Urobilinogen Normal Negative mg/dL Urine Leukocyte Esterase Negative Negative /uL Urine RBC <1 0 - 4 /hpf Urine Microscopic WBC 1 0-5 /HPF Urine Squamous Epithelial Cells None seen <5 /hpf Urine Bacteria None seen None Seen /hpf Urine Hyaline Casts Few 0 - 2 /lpf Urine Glucose Normal Normal mg/dL Test 08/08/24 09:48 Range/Units B-Type Natriuretic Peptide 3977.34 0-100 pg/mL Microbiology Date/Time Source Procedure Growth Status 08/08/24 09:48 Blood Blood Culture - Preliminary NO GROWTH AFTER 24 HOURS OF INCUBATION. Resulted Assessment Acute on chronic congestive heart failure, systolic versus diastolic NSTEMI type 2 due to above Acute on chronic hypoxic respiratory failure Right lower extremity DVT involving proximal and mid femoral vein Wells score 6, rule out pulmonary embolism History of atrial fibrillation s/p radiofrequency ablation; chads Vasc 6, HAS BLED 2 Hypercoagulable state secondary to above Questionable sepsis Plan: Echocardiogram IV heparin drip per pharmacy Continue IV diuresis with furosemide Currently holding GDMT owing soft pressures post intubation Consider CT PE Rest of the management as per hospitalist Thank you so much for the opportunity to consult on your patient. Cardiology team will follow the patient. In case of any questions or concerns please feel free to reach out. Plan discussed with Dr. Swan Plan discussed with: Patient, Spouse, Other (RN) Visit Coding Cardiology RES Date of Service: Aug 09, 2024 Billing Provider: ABRAHAM SWAN MD Cardiology Common Codes: [id number] INP/OBS CARE (High) ABRAHAM SWAN MD 08/09/24 1250: Family History: Family history: Diabetes mellitus G8 MOTHER, Onset:Unknown Allergies: Coded Allergies: Ciprofloxacin (Verified Allergy, Unknown, 01/03/16) Metronidazole (Verified Allergy, Unknown, 01/03/16) Home Meds Reported Medications Fluoxetine Hcl (Pmdd) (Fluoxetine) 10 Mg Cap, 1 CAP PO DAILY, #30 CAP 2 Refills 01/04/16 Alprazolam (Xanax) 0.25 Mg Tb, 1 TAB PO DAILY, #30 TAB 01/04/16 Plan/Recommendation pt seen with cv team high risk pt, unsure if hx of Mitral valve procedure? s/p lung tx recommend tx to higher level of care likely intubation now pAF ---sinus tach on admit, amio gtt started prox GSV clot --heparin gtt mild LV dysfunction noted---pressors as neededf iv lasix 40 mg given now high risk for decompensation, pt seen with SALES DEVELOPMENT COORDINATOR as well 40 mins critical care time spent Plan discussed with: Patient JENNIFER LANDRY RESIDENT Aug 09, 2024 11:42 ABRAHAM SAWN MD Aug 09, 2024 12:50
[2024-08-09] MEDS: MIDAZOLAM DRIP 50 mg/50mL 50 ML IV ONE (11:54)
[2024-08-09] MEDS: MIDAZOLAM DRIP 50 mg/50mL 50 ML IV SCH (12:00)
--- NOTE | 2024-08-09 12:18 | DVHSR ---
APPROVED REPORT EXAM: Two-dimensional and M-mode echocardiogram with Doppler and color Doppler. Blood Pressure: 150/88 mmHg INDICATION EF RISK FACTORS Height: 62, Weight: 174 DIMENSIONS LVDd (3.8-5.7cm)LA (2D)4.2 (1.9-4.0cm)Aortic Root3.3 (2.0-3.7cm) LVDs (2.5-4.0cm)LA (MM) (1.9-4.0cm)Aortic Cusp Exc1.3 (1.5-2.0cm) EF (%) 46.0 (55-70%)Rt. Atrium4.0 (1.9-4.0cm)Asc. Aorta cm Mitral Valve MitralMitral Stenosis E wave1.15m/sMV Mean GR.mmHg A wavem/sMV Peak GR.156mmHg E/A ratio0.02D MVAcm2 Aortic Valve Aortic ValveAortic Stenosis V11.07m/Reyes Mean GR.8mmHg V21.84m/Reyes Peak GR.14mmHg LVOT Diameter1.8 (1.8-2.4cm)Doppler AVA1.48cm2 AI P 1/2 Ugqd439.51ms Pulmonic Valve V20.84m/s Tricuspid Valve TR Velocity2.99m/s [id number] Other Information Technically limited study due to high heart rate, patient sitting straight up during exam and on bip ap. Conclusion mild LV dysfunction LVEF 45% sigmoid septum HR >140 during study which decreases overall sensitivity RV not well seen left atrium enlarged moderate RA normal mild to moderate mitral regurg, structurally normal, ?sp repair aortic sclerosis aortic valve not well seen, there is some amount of AI noted, however p1/2t is suspicious of severe A I, cannot assess well enough on this study given tachycardia/ resp distress/ bipap/ sitting upright trace to mild tricuspid regurg noted, cannot assess PA pressures
[2024-08-09] MEDS: fentaNYL CITRATE 5 ML ONE (12:22)
[2024-08-09] MEDS: fentaNYL Drip 2500mCg/250mlNS 250 ML IV ONE (12:22)
[2024-08-09] MEDS: fentaNYL Drip 2500mCg/250mlNS 250 ML IV SCH (12:47)
--- NOTE | 2024-08-09 13:01 | DVH ---
CHEST RADIOGRAPH Indication: intubated and central line placement Technique: Single frontal view of the chest was obtained COMPARISON: XY CHEST PORTABLE on DOS: 08/08/24 FINDINGS: Lines and Tubes: Endotracheal tube in satisfactory position. Right central venous catheter in the ri ght atrium. Lungs: Multifocal airspace disease Pleura: No effusion. No pneumothorax. Cardiomediastinal contours: Unremarkable Bones: Unremarkable IMPRESSION: Lines and tubes in satisfactory position. No significant interval change.
[2024-08-09 13:07] LABS: Base Excess 3.8 mmol/L (-2.0-3.0)
[2024-08-09] MEDS ORDERED: VANCOMYCIN PER PHARMACY 0 MG IV SCH (13:30)
--- NOTE | 2024-08-09 13:45 | DVHPN2 ---
Progress Note Date Seen: Aug 09, 2024 Has the PT tested + for MRSA If YES, has PT been informed?: No Medical Necessity Reason Pt with a Central, PICC or Fol: Yes The following are medically ne: Central Line, Acharya Catheter Reason for acharya catheter: Strict I&O Subjective Patient reports: No new complaints Review of Systems: HEENT:Normal, CVS:Normal, RESPIRATORY:Normal, GI:Normal, :Normal, MSK:Normal, NEURO:Normal Objective vital signs Vital Sign Date Time Temp Pulse Resp B/P (MAP) Pulse Ox O2 Delivery O2 Flow Rate FiO2 08/09/24 13:13 109 08/09/24 12:04 22 151/77 (101) 100 100 08/09/24 10:42 Facial BiPAP Mask 08/08/24 19:36 98.1 98.1 Total Intake and Output 08/08/24 08/08/24 08/09/24 15:00 23:00 07:00 Intake Total 250 ml 50 ml Output Total 1000 ml Balance 250 ml -950 ml medications Current Medications Medications Dose Ordered Sig/Tatyana Route Start Time Stop Time Status Last Admin Dose Admin Ipratropium [place] 0.5 mg Q6HPRN PRN NEB 08/08/24 21:15 Patient Own Medication 1 mg BID PO 08/09/24 10:00 Furosemide 20 mg BIDD IV 08/09/24 06:00 08/09/24 05:35 20 MG Patient Own Medication 100 mg BID PO 08/09/24 10:00 UNV Diagnostic Test (Pha) 1 strip ACHS 08/08/24 22:00 08/09/24 06:53 1 STRIP Insulin Human Regular ACHS SC 08/08/24 22:00 08/08/24 23:03 3 UNITS Dextrose 50 ml UD PRN IV 08/08/24 21:15 Acetaminophen 650 mg Q6HP PRN PO 08/08/24 21:15 Nitroglycerin 0.4 mg Q5MINP PRN SL 08/08/24 21:15 Morphine Sulfate 2 mg Q30M PRN IV 08/08/24 21:15 Albuterol 2.5 mg Q6HPRN PRN NEB 08/08/24 23:30 Heparin Sodium/ Dextrose 250 ml @ 14 mls/hr [id number] IV 08/09/24 10:15 08/09/24 11:32 14 MLS/HR Midazolam HCl 50 ml @ 1 mls/hr Q24H IV 08/09/24 12:00 Fentanyl Citrate 250 ml @ 2.5 mls/hr Q24H IV 08/09/24 12:00 08/09/24 12:47 2.5 MLS/HR Norepinephrine Bitartrate 250 ml @ 3.75 mls/hr Q24H IV 08/09/24 13:00 Cyclosporine 100 mg BID PO 08/09/24 22:00 UNV Vancomycin HCl 0 ml @ 0 mls/hr UD IV 08/09/24 13:30 UNV Micafungin Sodium 100 mg/Sodium Chloride 100 ml @ 100 mls/hr DAILY IV 08/10/24 10:00 UNV Levalbuterol HCl 0.625 mg Q6HR NEB 08/09/24 18:00 UNV Ipratropium [place] 0.5 mg Q6HR NEB 08/09/24 18:00 UNV Meropenem 50 ml @ 17 mls/hr Q8HR IV 08/09/24 14:00 UNV Methylprednisolone Sodium Succinate 40 mg BID IV 08/09/24 22:00 UNV Pantoprazole Sodium 40 mg DAILY IV 08/10/24 10:00 UNV Examination: GENERAL:Normal, HEENT:Normal, NECK:Normal, LUNGS:Normal, LUNGS:Abnormal (intubated), CVS:Normal, CVS:Abnormal (irregular), ABDOMEN:Normal, MSK:Normal, SKIN:Normal, NEURO:Normal, :Normal laboratory and microbiology Laboratory Tests 08/09/24 09:55 08/09/24 04:42 Test 08/09/24 04:42 Range/Units Serum Glucose 75 74-106 mg/dL Microbiology Date/Time Source Procedure Growth Status 08/08/24 09:48 Blood Blood Culture - Preliminary NO GROWTH AFTER 24 HOURS OF INCUBATION. Resulted Problem List/Assessment/Plan Problem List/Assessment/Plan #1 acute resp failure: on bipap, plan to intubate #2 a fib /flutter s/p ablation with secondary hypercoagulable state: on amiod drip, iv heparin #3 s/p lung txp #4 copd #5 sepsis with pneumonia- gram positive/neg/fungal: iv antibiotics, iv micafungin, bronchoscopy #6 acute renal failure ?vasomotor nephropathy #7 obesity #8 pulmonary fibrosis #9 acute on chronic systolic/diastolic heart failure: lasix iv long dw - reviewed history and explained plan of care Plan discussed with: Spouse My Orders My Orders Orders - WALDO CARRERA MD Procedure Category Date Status Time Amiodarone PHA 08/09/24 In Process 360mg/200ml Premix 11:00 Amiodarone PHA 08/09/24 In Process 360mg/200ml Premix 17:00 Midazolam Drip 50 PHA 08/09/24 In Process Mg/50ml (Versed Drip 5 12:00 Fentanyl Drip PHA 08/09/24 In Process 2500mcg/250mlns 12:00 Rass Sedation Scale TORSTEN 08/09/24 In Process 11:49 Ventilator Orders RT 08/09/24 Transmitted 11:50 Abg W/ Co-Ox RT 08/09/24 Logged 13:00 Respiratory Culture EVELINA 08/09/24 Logged W/ Gs 12:03 Chest Portable XY 08/09/24 Resulted 12:32 Transfer Orders XFER 08/09/24 Transmitted 12:48 Norepinephrine 8 PHA 08/09/24 In Process Mg/250ml Kit 13:00 Cyclosporine Modified PHA 08/09/24 Logged Capsule (Neoral Mo 22:00 Vancomycin Per PHA 08/09/24 Logged Pharmacy 13:30 Micafungin Sodium PHA 08/10/24 Logged (Mycamine) 10:00 Micafungin Sodium PHA 08/09/24 Logged (Mycamine) 13:30 Levalbuterol Hcl PHA 08/09/24 Logged (Xopenex Medneb) 18:00 Ipratropium Medneb PHA 08/09/24 Logged (Atrovent Medneb) 18:00 Meropenem 1gm Ivpb PHA 08/09/24 Logged (Merrem 1gm/ Ns) 13:30 Meropenem 1gm Ivpb PHA 08/09/24 Logged (Merrem 1gm/ Ns) 14:00 *Consult CONS 08/09/24 Transmitted / 13:18 Methylprednisolone PHA 08/09/24 Logged Sod Succ (Solu Medrol 13:30 Methylprednisolone PHA 08/09/24 Logged Sod Succ (Solu Medrol 22:00 Pantoprazole PHA 08/09/24 Logged (Protonix) 13:30 Pantoprazole PHA 08/10/24 Logged (Protonix) 10:00 Complete Blood Count LAB 08/10/24 Verified 06:00 Comprehensive LAB 08/10/24 Verified Metabolic Panel 06:00 Hemoglobin A1c LAB 08/10/24 Verified 06:00 Thyroid Stimulating LAB 08/10/24 Verified Hormone 05:00 Chest Portable XY 08/10/24 Logged 06:00 Abg W/ Co-Ox RT 08/10/24 Logged 06:00 Critical Care Time (mins): 86 (critical care time excluding procedures is 86 mins (including dw son)) Date of Service: Aug 09, 2024 Billing Provider: WALDO CARRERA MD Common Visit Codes: 99201-UHYOJCMN CARE 30-74 MIN, 33427-[id number] CARE-EACH +30MIN WALDO CARRERA MD Aug 09, 2024 13:45
--- NOTE | 2024-08-09 13:47 | DVHNC2 ---
Intubation Indication: Respiratory Insufficiency Prep: Preoxygenation Pretreated with: Sedation Medicated with: Nothing Intubation Approach: Orotracheal Intubation size: cm (7.5) Informed consent obtained: Yes Risks/benefits/alt described: Yes Date of Service: Aug 09, 2024 Billing Provider: WALDO CARRERA MD Common Visit Codes: PROCEDURE ONLY Procedure Codes: [id number] WALDO CARRERA MD Aug 09, 2024 13:47
--- NOTE | 2024-08-09 13:47 | DVHNC2 ---
Central Line Recorder of insertion practice: Zanjero Occupation of glass cutter: Attending Physician Indication: Inability to obtain IV Room prepared for procedure: Yes Zanjero performed hand hygien: Yes Maximal sterile barrier precau: Mask/Eye shield, Sterile gown, Cap, Sterlie gloves, Large sterlie drape Skin Preparation: Chlorhexidine gluconate Skin preparation completely dr: Yes Insertion site: Right, Internal jugular Central line catheter type: [id number]-kxuhodoh-czs dialysis Number of lumens: 3 Central line exchanged over a: No Antiseptic ointment applied to: Yes Post Assessment: Chest X-Ray Informed consent obtained: Yes Risks/benefits/alt described: Yes Date of Service: Aug 09, 2024 Billing Provider: WALDO CARRERA MD Common Visit Codes: PROCEDURE ONLY Procedure Codes: 51427-IZJYAX NON-TUNNEL CV CATH WALDO CARRERA MD Aug 09, 2024 13:47
[2024-08-09] MEDS: NOREPINEPHRINE 8 MG/250ML KIT 250 ML IV SCH (14:04)
[2024-08-09] MEDS: methylPREDNISolone SOD SUCC 40 MG/ML VL IV ONE (14:34)
[2024-08-09] MEDS: MEROPENEM 1GM IVPB 50 ML IV ONE (14:35)
[2024-08-09] MEDS: PANTOPRAZOLE 40 MG/10 ML VIAL INJ IV ONE (14:49)
--- NOTE | 2024-08-09 16:13 | DVHNC2 ---
Procedure - Bronchoscopy procedure note: Indications: Multifocal opacities, Possible mucous plugging. Obtain BAL for culture from RML and Lingula Resident: Dr Maxime Swan, PGY3 Attending: Dr Chaney Medicines: See [employer]CO POLISHER notes. Complications: None Procedure: Patient medications and allergies reviewed. The risks and benefits of the procedure and the sedation options and risk were discussed with the patient's healthcare proxy. All questions were answered and informed consent was obtained. Patient identification and proposed procedure were verified prior to the procedure by the physician, and a nurse, and the respiratory therapist in ICU room. The heart rate, respiratory rate, oxygen saturations, blood pressure, adequacy of pulmonary ventilation, and response to care were monitored throughout the procedure. The physical status of the patient was reassessed after the procedure. After obtaining informed consent, the bronchoscope was introduced through the endotracheal tube and advanced into the trachea bronchial tree of both lungs. The procedure was accomplished without difficulty. The patient tolerated the procedure well. Findings: The trachea is in normal caliber. The blane is sharp. The tracheobronchial tree of the right lung was examined to at least the first subsegmental level. The bronchial mucosa had slight mucosal hemorrhage noted in right upper lung and right middle lobe. The anatomy in the right lung are normal. There are no endobronchial lesions. There were no secretions from right lung. Right middle lobe (RML) Bronchoalveolar lavage (BAL) obtained. RML BAL sent for gram stain and culture, viral culture, fungal culture, and AFB smear and culture. The left upper lobe, lingula, and left lower lobe were examined to at least the first subsegmental level. Bronchial mucosa and anatomy in the left upper lobe and lingula are normal. There were no endobronchial lesions. There was copious greyish secretions from left main stem bronchus onward throughout L1-L4. Mucous plugging removed from L1-L4. Lingular Bronchoalveolar lavage (BAL) obtained. Lingular BAL sent for gram stain and culture, viral culture, fungal culture, and AFB smear and culture. There was no active bleeding at the completion of the procedure. Estimated blood loss: Less than 5 mL. Impression: Left upper lobe and lingular lobe atelectasis due to mucous plugging Mucous plugging from L1-L4 RML and Lingular BAL performed Recommendation: Follow-up RML and Lingular BAL results. Procedure codes: 90687, bronchoscopy, rigid and flexible, including fluoroscopic guidance, one performed; with bronchial endobronchial broncho-alveolar lavage, single or multiple sites THOMAS SWAN RESIDENT Aug 09, 2024 16:13
[2024-08-09 16:15] LABS: INR 1.19 (0.9-1.15); Partial Thromboplastin Time 33.9 SEC (24.5-34.5); Prothrombin Time 12.4 sec (9.3-11.8)
[2024-08-09] MEDS: MICAFUNGIN SODIUM 100 MG in SODIUM CHL 0.9% 100 ML IV ONE (16:18)
--- NOTE | 2024-08-09 16:51 | DVH ---
CHEST RADIOGRAPH Indication: S/P BRONCHOSCOPY, NG TUBE PLACEMENT Technique: Single frontal view of the chest was obtained COMPARISON: XY CHEST PORTABLE on DOS: 08/09/24, XY CHEST PORTABLE on DOS: 08/08/24 FINDINGS: Lines and Tubes: Endotracheal tube, enteric catheter and right central venous catheter in satisfactor y position. Lungs: Multifocal airspace disease. Pleura: No effusion. No pneumothorax. Cardiomediastinal contours: Unremarkable Bones: Unremarkable IMPRESSION: Lines and tubes in satisfactory position. Slightly improved aeration of the lungs.
[2024-08-09] MEDS: VANCOMYCIN 500mg/100mL 100 ML IV ONE (17:15)
[2024-08-09] MEDS ORDERED: POTA-36 PO (17:59)
[2024-08-09] MEDS ORDERED: FURO40TA4 PO (17:59)
[2024-08-09] MEDS: IPRATROPIUM BROM 0.5 MG/2.5ML INH SOL NEB SCH (18:00)
[2024-08-09] MEDS: LEVALBUTEROL HCL 1.25 MG/3 ML NEB NEB SCH (18:00)
[2024-08-09] MEDS ORDERED: MULT-1018 PO (18:07)
[2024-08-09] MEDS ORDERED: INSLISPI SC (18:07)
[2024-08-09] MEDS ORDERED: AZIT-43 PO (18:07)
[2024-08-09] MEDS ORDERED: [UNRECOGNIZED DRUG - CODE] PO (18:07)
[2024-08-09] MEDS ORDERED: CYCL100S PO (18:07)
[2024-08-09] MEDS ORDERED: ESCI1TAB36 PO (18:07)
[2024-08-09] MEDS ORDERED: FER325T PO (18:07)
[2024-08-09] MEDS ORDERED: FLUD0.1T2 PO (18:07)
[2024-08-09] MEDS ORDERED: BISO5TAB44 PO (18:07)
[2024-08-09] MEDS ORDERED: PANT40TA2 PO (18:07)
[2024-08-09] MEDS ORDERED: ALEN70TA74 PO (18:07)
[2024-08-09] MEDS ORDERED: INSU100I70 SC (18:07)
[2024-08-09] MEDS ORDERED: CALC600T86 PO (18:07)
[2024-08-09] MEDS ORDERED: PRE1T PO (18:07)
[2024-08-09] MEDS ORDERED: APIX5TAB PO (18:07)
[2024-08-09] MEDS ORDERED: CARB1DRO RIGHTEYE (18:07)
[2024-08-09] MEDS ORDERED: CHOL20007 PO (18:08)
[2024-08-09] MEDS ORDERED: SULF400I3 PO (18:08)
[2024-08-09] MEDS ORDERED: ROSU10TA16 PO (18:08)
[2024-08-09 20:52] LABS: INR 1.24 (0.9-1.15); Prothrombin Time 12.9 sec (9.3-11.8)
[2024-08-09 21:05] LABS: Partial Thromboplastin Time 83.7 SEC (24.5-34.5)
[2024-08-09] MEDS: MEROPENEM 1GM IVPB 50 ML IV SCH (21:37)
[2024-08-09] MEDS: methylPREDNISolone SOD SUCC 40 MG/ML VL IV SCH (21:37)
[2024-08-09] MEDS ORDERED: ENOXAPARIN SOD 100 MG/1 ML SYRINGE SC SCH (22:00)
[2024-08-10] VITALS (104 sets, daily range): BP systolic 87–185; BP diastolic 44–95; PULSE 57–86; RESP 13–23; TEMP 96.6–99; O2SAT 92–100
[2024-08-10 04:19] LABS: Basophils # (auto) 0.2 10 ^3/uL (0-0.2); Basophils % (auto) 2.4 % (0.0-2.0); Eosinophils # (auto) 0 10 ^3/uL (0-0.8); Hematocrit 22.5 % (36.0-46.0); Hemoglobin 7.5 g/dL (12.2-16.2); Lymphocytes # (auto) 0.3 10 ^3/uL (0.4-5.4); Lymphocytes % (auto) 3.4 % (10.0-50.0); Mean Corpuscular Hemoglobin 30.9 pg (28.0-32.0); Mean Corpuscular Hgb Conc. 33.1 g/dL (32.0-36.0); Mean Corpuscular Volume 93.2 fL (80.0-100.0); Monocytes # (auto) 0.2 10 ^3/uL (0-1.3); Monocytes % (auto) 2.7 % (0.0-12.0); Neutrophils # (auto) 6.7 10 ^3/uL (1.6-8.6); Neutrophils % (auto) 91.5 % (37.0-80.0); Platelet Count (auto) 178 10^3/uL (140-450); Red Blood Cells 2.41 10^6/uL (4.0-5.20); Red Cell Distribution Width 16.4 % (11.8-14.3); White Blood Cell 7.3 10^3/uL (4.4-10.8)
[2024-08-10 04:38] LABS: Alkaline Phosphatase 84 U/L (46-116); Anion Gap 13 (5-15); BUN/Creatinine Ratio 16.7 (10.0-20.0); Carbon Dioxide 29 mmol/L (20-31); Chloride 98 mmol/L (98-107); Sodium 140 mmol/L (136-145)
[2024-08-10 04:39] LABS: Alanine Aminotransferase 9 U/L (7-40); Aspartate Aminotransferase 53 U/L (<34); Bilirubin, Total 0.6 mg/dL (0.2-1.0); Blood Urea Nitrogen 31 mg/dL (9-23); Calcium 8.6 mg/dL (8.7-10.4); Glucose 186 mg/dL (74-106); Potassium 3.5 mmol/L (3.5-5.1); Total Protein 5.1 g/dL (5.7-8.2)
--- NOTE | 2024-08-10 05:25 | DVH ---
EXAM: XR Chest, 1 View CLINICAL INDICATION: Pain TECHNIQUE: Frontal view of the chest. COMPARISON: No relevant prior studies available. FINDINGS: LUNGS AND PLEURAL SPACES: See below. HEART: Cardiomegaly with pulmonary congestion and edema. Superimposed pneumonia cannot be excluded. MEDIASTINUM: Unremarkable. Normal mediastinal contour. BONES/JOINTS: Unremarkable. No acute fracture. TUBES, LINES AND DEVICES: Stable tubes and lines. IMPRESSION: Cardiomegaly with pulmonary congestion and edema. Superimposed pneumonia cannot be excluded.
[2024-08-10] MEDS ORDERED: HEPARIN DRIP/D5W 100UNITS/ML 250 ML IV SCH (06:00)
[2024-08-10 06:50] LABS: Base Excess 3.6 mmol/L (-2.0-3.0)
[2024-08-10] MEDS: HEPARIN DRIP/D5W 100UNITS/ML 250 ML IV SCH ×3 (06:53→21:15)
--- NOTE | 2024-08-10 07:25 | ECG ---
[facility] Test Date: 2024-08-10 Test Time: 04:05:58 Pat Name: KIMMIE NOLAND Department: ICU Room: [address] [place] [address] A Gender: F Mail Handler: GENESIS : 1960 Requested By: WALDO CARRERA Order Number: [id number] Reading MD: Abhay Cabello Measurements Intervals Bulger Rate: 77 P: 29 AL: 154 QRS: -7 QRSD: 81 T: 16 QT: 459 QTc: 520 Interpretive Statements Sinus rhythm Atrial premature complex Sinus pause Left ventricular hypertrophy Prolonged QT interval Electronically Signed On 08-10-2024 17:23:48 PDT by Abhay Cabello Please click the below link to view image of tracing.
[2024-08-10] MEDS: MICAFUNGIN SODIUM 100 MG in SODIUM CHL 0.9% 100 ML IV SCH (08:10)
[2024-08-10] MEDS: PANTOPRAZOLE 40 MG/10 ML VIAL INJ IV SCH (09:07)
--- NOTE | 2024-08-10 11:05 | DVHPNRES ---
Progress Note Has the PT tested + for MRSA If YES, has PT been informed?: No Medical Necessity Reason Pt with a Central, PICC or Fol: Yes The following are medically ne: Central Line, Acharya Catheter Reason for acharya catheter: Strict I&O Objective vital signs Vital Sign Date Time Temp Pulse Resp B/P (MAP) Pulse Ox O2 Delivery O2 Flow Rate FiO2 08/10/24 10:45 97.0 70 22 117/58 (77) 92 206.6 08/10/24 10:00 Mechanical Ventilator+ 50 50 Total Intake and Output 08/09/24 08/09/24 08/10/24 15:00 23:00 07:00 Intake Total 631.82 ml 642.21 ml 414.42 ml Output Total 525 ml 250 ml Balance 631.82 ml 117.21 ml 164.42 ml medications Current Medications Medications Dose Ordered Sig/Tatyana Route Start Time Stop Time Status Last Admin Dose Admin Ipratropium [place] 0.5 mg Q6HPRN PRN NEB 08/08/24 21:15 Patient Own Medication 1 mg BID PO 08/09/24 10:00 Furosemide 20 mg BIDD IV 08/09/24 06:00 08/10/24 05:11 20 MG Patient Own Medication 100 mg BID PO 08/09/24 10:00 UNV Diagnostic Test (Pha) 1 strip ACHS 08/08/24 22:00 08/10/24 06:53 1 STRIP Insulin Human Regular ACHS SC 08/08/24 22:00 08/08/24 23:03 3 UNITS Dextrose 50 ml UD PRN IV 08/08/24 21:15 Acetaminophen 650 mg Q6HP PRN PO 08/08/24 21:15 Nitroglycerin 0.4 mg Q5MINP PRN SL 08/08/24 21:15 Morphine Sulfate 2 mg Q30M PRN IV 08/08/24 21:15 Albuterol 2.5 mg Q6HPRN PRN NEB 08/08/24 23:30 Midazolam HCl 50 ml @ 1 mls/hr Q24H IV 08/09/24 12:00 08/10/24 08:42 8 MLS/HR Fentanyl Citrate 250 ml @ 2.5 mls/hr Q24H IV 08/09/24 12:00 08/09/24 12:47 2.5 MLS/HR Norepinephrine Bitartrate 250 ml @ 3.75 mls/hr Q24H IV 08/09/24 13:00 08/09/24 14:04 3.75 MLS/HR Cyclosporine 100 mg BID PO 08/09/24 22:00 Vancomycin HCl 0 ml @ 0 mls/hr UD IV 08/09/24 13:30 Micafungin Sodium 100 mg/Sodium Chloride 100 ml @ 100 mls/hr DAILY IV 08/10/24 10:00 08/10/24 08:10 100 MLS/HR Levalbuterol HCl 0.625 mg Q6HR NEB 08/09/24 18:00 08/10/24 00:00 0.625 MG Ipratropium [place] 0.5 mg Q6HR NEB 08/09/24 18:00 08/10/24 00:00 0.5 MG Meropenem 50 ml @ 17 mls/hr Q12HR IV 08/09/24 22:00 08/10/24 09:07 17 MLS/HR Methylprednisolone Sodium Succinate 40 mg BID IV 08/09/24 22:00 08/10/24 09:07 40 MG Pantoprazole Sodium 40 mg DAILY IV 08/10/24 10:00 08/10/24 09:07 40 MG Heparin Sodium/ Dextrose 250 ml @ 12 mls/hr [id number] IV 08/09/24 21:15 Cancel Heparin Sodium/ Dextrose 250 ml @ 9 mls/hr Q24H IV 08/10/24 06:40 08/10/24 06:53 9 MLS/HR laboratory and microbiology Laboratory Tests 08/10/24 03:25 Test 08/10/24 03:25 Range/Units Serum Glucose 186 H 74-106 mg/dL Microbiology Date/Time Source Procedure Growth Status 08/09/24 15:55 Lung Pending Resulted 08/09/24 15:55 Lung Pending Resulted 08/09/24 15:55 Lung Pending Resulted 08/09/24 15:55 Lung Pending Resulted 08/09/24 15:55 Lung Viral Culture Pending Resulted 08/09/24 15:55 Lung - Final See Separate Report... Resulted 08/08/24 09:48 Blood Blood Culture - Preliminary NO GROWTH AFTER 48 HOURS OF INCUBATION. Resulted My Orders My Orders Orders - JENNIFER LANDRY RESIDENT Procedure Category Date Status Time Heparin Per Pharmacy TORSTEN 08/09/24 In Process Protocol 16:16 Heparin Drip/D5w PHA 08/10/24 In Process 100units/Ml 06:40 PTPTT LAB 08/10/24 Logged 12:40 Heparin Per Pharmacy TORSTEN 08/10/24 In Process Protocol 05:52 JENNIFER LANDRY RESIDENT Aug 10, 2024 11:05
--- NOTE | 2024-08-10 13:11 | DVHPN2 ---
Progress Note Date Seen: Aug 10, 2024 Has the PT tested + for MRSA If YES, has PT been informed?: No Medical Necessity Reason Pt with a Central, PICC or Fol: Yes The following are medically ne: Central Line, Acharya Catheter Reason for acharya catheter: Strict I&O Objective vital signs Vital Sign Date Time Temp Pulse Resp B/P (MAP) Pulse Ox O2 Delivery O2 Flow Rate FiO2 08/10/24 12:55 97.0 71 22 105/54 97.0 08/10/24 12:00 94 Mechanical Ventilator+ 40 40 Total Intake and Output 08/09/24 08/09/24 08/10/24 15:00 23:00 07:00 Intake Total 631.82 ml 642.21 ml 414.42 ml Output Total 525 ml 250 ml Balance 631.82 ml 117.21 ml 164.42 ml medications Current Medications Medications Dose Ordered Sig/Tatyana Route Start Time Stop Time Status Last Admin Dose Admin Ipratropium [place] 0.5 mg Q6HPRN PRN NEB 08/08/24 21:15 Patient Own Medication 1 mg BID PO 08/09/24 10:00 Furosemide 20 mg BIDD IV 08/09/24 06:00 08/10/24 05:11 20 MG Patient Own Medication 100 mg BID PO 08/09/24 10:00 UNV Diagnostic Test (Pha) 1 strip ACHS 08/08/24 22:00 08/10/24 11:39 1 STRIP Insulin Human Regular ACHS SC 08/08/24 22:00 08/10/24 11:39 3 UNITS Dextrose 50 ml UD PRN IV 08/08/24 21:15 Acetaminophen 650 mg Q6HP PRN PO 08/08/24 21:15 Nitroglycerin 0.4 mg Q5MINP PRN SL 08/08/24 21:15 Morphine Sulfate 2 mg Q30M PRN IV 08/08/24 21:15 Albuterol 2.5 mg Q6HPRN PRN NEB 08/08/24 23:30 Midazolam HCl 50 ml @ 1 mls/hr Q24H IV 08/09/24 12:00 08/10/24 08:42 8 MLS/HR Fentanyl Citrate 250 ml @ 2.5 mls/hr Q24H IV 08/09/24 12:00 08/09/24 12:47 2.5 MLS/HR Norepinephrine Bitartrate 250 ml @ 3.75 mls/hr Q24H IV 08/09/24 13:00 08/09/24 14:04 3.75 MLS/HR Cyclosporine 100 mg BID PO 08/09/24 22:00 Vancomycin HCl 0 ml @ 0 mls/hr UD IV 08/09/24 13:30 Micafungin Sodium 100 mg/Sodium Chloride 100 ml @ 100 mls/hr DAILY IV 08/10/24 10:00 08/10/24 08:10 100 MLS/HR Levalbuterol HCl 0.625 mg Q6HR NEB 08/09/24 18:00 08/10/24 11:57 0.625 MG Ipratropium [place] 0.5 mg Q6HR NEB 08/09/24 18:00 08/10/24 11:57 0.5 MG Meropenem 50 ml @ 17 mls/hr Q12HR IV 08/09/24 22:00 08/10/24 09:07 17 MLS/HR Methylprednisolone Sodium Succinate 40 mg BID IV 08/09/24 22:00 08/10/24 09:07 40 MG Pantoprazole Sodium 40 mg DAILY IV 08/10/24 10:00 08/10/24 09:07 40 MG Heparin Sodium/ Dextrose 250 ml @ 12 mls/hr [id number] IV 08/09/24 21:15 Cancel Heparin Sodium/ Dextrose 250 ml @ 9 mls/hr Q24H IV 08/10/24 06:40 08/10/24 06:53 9 MLS/HR Examination: GENERAL:Abnormal, HEENT:Abnormal, LUNGS:Abnormal, CVS:Abnormal, ABDOMEN:Abnormal laboratory and microbiology Laboratory Tests 08/10/24 03:25 Test 08/10/24 03:25 Range/Units Serum Glucose 186 H 74-106 mg/dL Microbiology Date/Time Source Procedure Growth Status 08/09/24 15:55 Lung Pending Resulted 08/09/24 15:55 Lung Pending Resulted 08/09/24 15:55 Lung Pending Resulted 08/09/24 15:55 Lung Pending Resulted 08/09/24 15:55 Lung Viral Culture Pending Resulted 08/09/24 15:55 Lung - Final See Separate Report... Resulted 08/09/24 15:55 Bronchial Washings Gram Stain Pending Resulted 08/09/24 15:55 Bronchial Washings Respiratory Culture - Preliminary Resulted 08/08/24 09:48 Blood Blood Culture - Preliminary NO GROWTH AFTER 48 HOURS OF INCUBATION. Resulted Problem List/Assessment/Plan Problem List/Assessment/Plan resp failure s/p lung tx hx of MV surgery? hx of afib [place] iv laisix today heparin gtt for DVT cont levophed low dose dc amio gtt , SR now tx to [place] when feasible 40 mins critical care time spent Plan discussed with: Patient, Other (rn) Dietary Evaluation Review Comments: Nutrition Recommendation: 1) Glucerna 1.2Cal @ 50ml/hr along with Pro-stat 1 pk Daily. start @ 20ml/hr, increase 10ml/hr Q4H until goal is reached. TF @ goal volume along Pro-stat provides 1540 kcal (100% energy needs), 87gm protein (100% protein needs), 966ml free water. 2) TPN to meet at least 75% estimated needs if NPO > 7 days 3) Monitor NPO status, lab values, wt trend, I/O Expected Outcomes/Goals: To meet >75% estimated needs Fu 2-3 days Date of Service: Aug 10, 2024 Billing Provider: ABRAHAM SWAN MD Common Visit Codes: NOT BILLABLE ABRAHAM SWAN MD Aug 10, 2024 13:10
[2024-08-10] MEDS: BUMETANIDE 2.5mg/10ml (0.25 mg/ml) INJ IV SCH (13:27)
[2024-08-10 13:33] LABS: INR 1.14 (0.9-1.15); Prothrombin Time 11.9 sec (9.3-11.8)
[2024-08-10 13:35] LABS: Partial Thromboplastin Time 82.3 SEC (24.5-34.5)
--- NOTE | 2024-08-10 14:10 | DVHDS2 ---
Discharge Summary Date of Admission Aug 08, 2024 at 21:03 Date of Discharge: Aug 10, 2024 Labs/Diagnostic Data: Laboratory Results Test 08/10/24 12:32 08/10/24 11:25 08/10/24 06:42 08/10/24 03:25 Prothrombin Time 11.9 sec (9.3-11.8) Prothrombin Time INR 1.14 (0.9-1.15) Activated Partial Thromboplast Time 82.3 SEC (24.5-34.5) POC Glucose 177 mg/dl (70-106) Blood Gas Specimen Type Arterial Blood Gas Sample Site Left radial Blood Gas Patient Temperature 37.0 Arterial Blood Date Drawn [id number] Arterial Blood pH 7.495 (7.350-7.450) Arterial Blood Partial Pressure CO2 35.5 mmHg (32.0-45.0) Arterial Blood Partial Pressure O2 73.2 mmHg (83.0-108.0) Arterial Blood HCO3 26.8 mmol/L (21.0-28.0) Arterial Blood Oxygen Saturation 93.4 % (94.0-98.0) Arterial Blood Base Excess 3.6 mmol/L (-2.0-3.0) Arterial Blood Oxyhemoglobin 92.8 % (94.0-98.0) Arterial Blood Carboxyhemoglobin 0.3 % (0.5-1.5) Arterial Blood Methemoglobin 0.3 % (0.0-1.5) Ramos Test Modified Blood Gas Total Hemoglobin 11.30 g/dL (12.0-16.0) Blood Gas Set Respiration Rate 22.0 Blood Gas Modality Vent - ac FiO2 % 50.0 Blood Gas Tidal Volume 450.0 Blood Gas PEEP or CPAP 5.0 White Blood Count 7.3 10^3/uL (4.4-10.8) Red Blood Count 2.41 10^6/uL (4.0-5.20) Hemoglobin 7.5 g/dL (12.2-16.2) Hematocrit 22.5 % (36.0-46.0) Mean Corpuscular Volume 93.2 fL (80.0-100.0) Mean Corpuscular Hemoglobin 30.9 pg (28.0-32.0) Mean Corpuscular Hemoglobin Concent 33.1 g/dL (32.0-36.0) Red Cell Distribution Width 16.4 % (11.8-14.3) Platelet Count 178 10^3/uL (140-450) Mean Platelet Volume 9.0 fL (6.9-10.8) Neutrophils (%) (Auto) 91.5 % (37.0-80.0) Lymphocytes (%) (Auto) 3.4 % (10.0-50.0) Monocytes (%) (Auto) 2.7 % (0.0-12.0) Eosinophils (%) (Auto) 0.0 % (0.0-7.0) Basophils (%) (Auto) 2.4 % (0.0-2.0) Neutrophils # (Auto) 6.7 10 ^3/uL (1.6-8.6) Lymphocytes # (Auto) 0.3 10 ^3/uL (0.4-5.4) Monocytes # (Auto) 0.2 10 ^3/uL (0-1.3) Eosinophils # (Auto) 0 10 ^3/uL (0-0.8) Basophils # (Auto) 0.2 10 ^3/uL (0-0.2) Nucleated Red Blood Cells 0.0 % Sodium Level 140 mmol/L (136-145) Potassium Level 3.5 mmol/L (3.5-5.1) Chloride Level 98 mmol/L (98-107) Carbon Dioxide Level 29 mmol/L (20-31) Anion Gap 13 (5-15) Blood Urea Nitrogen 31 mg/dL (9-23) Creatinine 1.86 mg/dL (0.550-1.02) Glomerular Filtration Rate Calc 30 mL/min (>90) BUN/Creatinine Ratio 16.7 (10.0-20.0) Serum Glucose 186 mg/dL (74-106) Hemoglobin A1c 5.7 % A1C (<5.7) Calcium Level 8.6 mg/dL (8.7-10.4) Magnesium Level 1.9 mg/dL (1.6-2.6) Total Bilirubin 0.6 mg/dL (0.2-1.0) Aspartate Amino Transferase (AST) 53 U/L (<34) Alanine Aminotransferase (ALT) 9 U/L (7-40) Alkaline Phosphatase 84 U/L (46-116) Total Protein 5.1 g/dL (5.7-8.2) Albumin 3.0 g/dL (3.2-4.8) Thyroid Stimulating Hormone (TSH) 0.32 uIU/mL (0.55-4.78) Random Vancomycin Level 14.3 ug/mL (5-10) Test 08/09/24 08:26 08/09/24 05:24 08/08/24 16:28 08/08/24 12:59 Blood Gas EPAP 5 Blood Gas IPAP 12 D-Dimer, Quantitative 0.95 mg/L FEU (0.0-0.49) Influenza Type A Antigen Negative (Negative) Influenza Type B Antigen Negative (Negative) SARS-CoV-2 Antigen (Rapid) Negative (NEGATIVE) Lactic Acid Level 3.0 mmol/L (0.4-2.0) Troponin I High Sensitivity 126 ng/L (</=34) Test 08/08/24 11:00 08/08/24 09:48 Urine Color Light-yellow (Yellow) Urine Clarity Clear (Clear) Urine pH 5.5 (5.0-9.0) Urine Specific [place] 1.007 (1.001-1.035) Urine Protein Negative (Negative) Urine Ketones Negative (Negative) Urine Blood Negative /uL (Negative) Urine Nitrite Negative (Negative) Urine Bilirubin Negative (Negative) Urine Urobilinogen Normal mg/dL (Negative) Urine Leukocyte Esterase Negative /uL (Negative) Urine RBC <1 /hpf (0 - 4) Urine Microscopic WBC 1 /HPF (0-5) Urine Squamous Epithelial Cells None seen /hpf (<5) Urine Bacteria None seen /hpf (None Seen) Urine Hyaline Casts Few /lpf (0 - 2) Urine Glucose Normal mg/dL (Normal) B-Type Natriuretic Peptide 3977.34 pg/mL (0-100) Other Laboratory Tests 08/10/24 03:25 Brief Hx & Hospital Course: SEE DICTATED NOTE Condition at Discharge: Critical Final Diagnosis/Problems List resp failure Discharge Disposition: Acute Care Facility Discharge Instruct/Medications Diet: See Comment Diet comment: npo Activity: Bed rest Follow Up/Referral: fu with Jacinto Medications: per apr Discharge Statement: "Patient was advised to return to the ER or call 911 if any headaches, dizziness, shortness of breath, chest pain, abdominal pain, bleeding, fevers, or worsening of medical condition. Patient was counseled about treatment plan, medications, possible side effects, patientverbalized understanding. All questions were answered to the best of my ability. This discharge took greater then 30 minutes in planning, reviewing documentation, counseling the patient, and discussing with other team members." ASSESSMENT ASSESSMENT Assessment resp failure Date of Service: Aug 10, 2024 Billing Provider: WALDO CARRERA MD Common Visit Codes: 38805-[id number] CARE 30-74 MIN, [id number] CARE-EACH +30MIN WALDO CARRERA MD Aug 10, 2024 14:10
--- NOTE | 2024-08-10 14:13 | CONS ---
Pharmacy Clinical Information: HEPARIN PER PHARMACY PROTOCOL PREVIOUS HEPARIN RATE 900UNITS/HR (APTT 82.3 @1230), DECREASE RATE BY 200UNITS/HR NEW RATE 700UNITS/HR STARTED @1335 08/10/24 (ALREADY CHANGED BY RN @1335) NEXT APTT DRAW @1930 08/10/24 RN AWARE JACOBO STOLL PHARMACIST Aug 10, 2024 14:13
--- NOTE | 2024-08-10 14:52 | DVHDS ---
DATE OF DISCHARGE: 08/10/2024 TRANSFER SUMMARY HISTORY OF PRESENT ILLNESS: The patient is a 63-year-old lady who was admitted with a history of increasing shortness of breath and chest tightness and has history of lung transplant, atrial fibrillation, congestive heart failure, mitral regurgitation, and hyperlipidemia. HOSPITAL COURSE: The patient went into worsening respiratory failure. The patient was intubated and mechanically ventilated. The patient's cultures so far are pending. The patient was hypotensive and the creatinine is increased from 1.45 to 1.86 at the time of transfer. The patient's BNP was elevated at 3900. Troponin level was 126. The patient's hemoglobin was 9.4 that decreased to 7.5. She was transfused 1 unit of blood. The patient had Doppler of the lower extremity that showed a DVT in the right proximal and mid femoral vein. The patient had a chest x-ray that showed bilateral infiltrates. Echocardiogram done showed ejection fraction of 45% with mild to moderate mitral regurgitation. The patient is currently off of vasopressors. I have discussed with the patient's transplant doctor, Dr. Cobian, who has agreed to accept the patient. I have also updated the patient's , Sae, as to the plan of care. The patient will be transferred to [facility] once arrangements have been made. FINAL DIAGNOSES: * Acute respiratory failure. * Atrial fibrillation/flutter with secondary hypercoagulable state with previous ablation. * History of right lung transplant. * Chronic obstructive pulmonary disease. * Septic shock with pneumonia gram positive, gram negative, possible fungal. * Acute renal failure, question of vasomotor nephropathy. * History of pulmonary fibrosis. * [id number] systolic/diastolic heart failure with mitral regurgitation. * Obesity. * Right leg deep vein thrombosis. Critical care time spent including discussion with edi consultant and family was 82 minutes. MD DEBBIE De Dios/EKT TID: [id number] RECEIPT: [id number]
[2024-08-10 16:19] LABS: Hematocrit 26.7 % (36.0-46.0)
[2024-08-10] MEDS: fentaNYL CITRATE 100 MCG/2 ML VL IV ONE (18:44)
[2024-08-10 20:25] LABS: INR 1.04 (0.9-1.15); Partial Thromboplastin Time 46.6 SEC (24.5-34.5)
--- NOTE | 2024-08-10 21:31 | CONS ---
Pharmacy Clinical Information: RATE INCREASED FROM 7ML/HR TO 9ML/HR OR 900 UNITS/ HR SINCE APTT = 46.6 @08/10 PER RX PROTOCOL NEXT APTT JEWELL @08/11 JACI REPEATED ORDER BACK AT 9ML/HR DEVAN CRUZ PHARMACIST Aug 10, 2024 21:31
== END 2024-08-10 21:57 | disposition short-term general hospital (02) | DRG 871 ==
LOC: EDBD 09:14 → ER 09:14 → OVERFLOW 21:03 → ICU WEST 08-09 15:22
PROVIDERS: ADMIT Internal Medicine; ATTEND Internal Medicine
PROC: 5A09457 Assistance with Respiratory Ventilation, 24-96 Consecutive Hours, Continuous Positive Airway Pressure (ICD-10-PCS; 2024-08-08)
PROC: 5A1945Z Respiratory Ventilation, 24-96 Consecutive Hours (ICD-10-PCS; principal; 2024-08-09)
PROC: 0BH17EZ Insertion of Endotracheal Airway into Trachea, Via Natural or Artificial Opening (ICD-10-PCS; 2024-08-09)
PROC: 02H633Z Insertion of Infusion Device into Right Atrium, Percutaneous Approach (ICD-10-PCS; 2024-08-09)
PROC: 0B9H8ZX Drainage of Lung Lingula, Via Natural or Artificial Opening Endoscopic, Diagnostic (ICD-10-PCS; 2024-08-09)
PROC: 0B9D8ZX Drainage of Right Middle Lung Lobe, Via Natural or Artificial Opening Endoscopic, Diagnostic (ICD-10-PCS; 2024-08-09)
PROC: 0BC78ZZ Extirpation of Matter from Left Main Bronchus, Via Natural or Artificial Opening Endoscopic (ICD-10-PCS; 2024-08-09)
PROC: 5A09457 Assistance with Respiratory Ventilation, 24-96 Consecutive Hours, Continuous Positive Airway Pressure (ICD-10-PCS; 2024-08-09)
PROC: 30233N1 Transfusion of Nonautologous Red Blood Cells into Peripheral Vein, Percutaneous Approach (ICD-10-PCS; 2024-08-10)
DX: A41.50 Gram-negative sepsis, unspecified (principal); I21.A1 Myocardial infarction type 2; I50.43 Acute on chronic combined systolic (congestive) and diastolic (congestive) heart failure; J15.69 Pneumonia due to other Gram-negative bacteria; J96.01 Acute respiratory failure with hypoxia; N17.0 Acute kidney failure with tubular necrosis; R65.21 Severe sepsis with septic shock; J15.9 Unspecified bacterial pneumonia; I48.92 Unspecified atrial flutter; I82.401 Acute embolism and thrombosis of unspecified deep veins of right lower extremity; I13.0 Hypertensive heart and chronic kidney disease with heart failure and stage 1 through stage 4 chronic kidney disease, or unspecified chronic kidney disease; J44.0 Chronic obstructive pulmonary disease with (acute) lower respiratory infection; I16.1 Hypertensive emergency; D68.69 Other thrombophilia; E78.5 Hyperlipidemia, unspecified; N18.9 Chronic kidney disease, unspecified; E11.22 Type 2 diabetes mellitus with diabetic chronic kidney disease; J84.10 Pulmonary fibrosis, unspecified; E66.9 Obesity, unspecified; I34.0 Nonrheumatic mitral (valve) insufficiency; I48.91 Unspecified atrial fibrillation; F41.9 Anxiety disorder, unspecified; Z20.822 Contact with and (suspected) exposure to COVID-19; Z88.1 Allergy status to other antibiotic agents; Z88.3 Allergy status to other anti-infective agents; Z68.27 Body mass index [BMI] 27.0-27.9, adult
CPT/HCPCS: 36415; 36556; 36600; 71045; 80048; 80053; 80202; 81001; 82805; 82962; 83036; 83605; 83735; 83880; 84443; 84484; 85014; 85018; 85025; 85379; 85610; 85730; 86850; 86900; 86901; 86920; 87040; 87070; 87077; 87081; 87086; 87205; 87426; 87804; 93005; 93306; 93970; 94002; 94003; 94640; 94660; 96365; 96375; 99291; G0378; J1815; J2185; J2248; J2470